=== PATIENT | male | born 1955 | race Caucasian/White ===

== ENCOUNTER 2019-12-23 08:39 | Inpatient (IN) | payer BC, SELFPAY ==
[2019-12-23] VITALS (25 sets, daily range): BP systolic 90–172; BP diastolic 55–110; PULSE 64–117; RESP 16–19; TEMP 36.6–36.9; O2SAT 94–98; BMI 33.3; BMI 34.1
--- NOTE | 2019-12-23 | IR_ITS ---
APPROVED REPORT Patient Location: Emergent Fur Clipper: YOSSI Martel RT (R) PROCEDURES Left heart catheterization Left ventriculogram Selective coronary angiogram Thrombectomy to the proximal dominant right coronary artery followed by drug-eluting stenting to the proximal to mid dominant right coronary Drug-eluting stent deployment to the mid circumflex artery INDICATION Acute inferior lateral posterior ST elevation myocardial infarction, Coronary artery disease, Critical disease in the circumflex artery accompanied by CONSTANCE II flow, Informed consent was obtained prior to the procedure. TECHNIQUE One percent lidocaine used to anesthetize the right anterior aspect of the wrist. The right radial artery was accessed via the Seldinger technique. A 6 Burkinan sheath was placed in the right radial artery. 2.5 mg of verapamil, 800 mcg of nitroglycerin, 1mg Lidocaine were administered intra-arterially. And I Katherien right catheter was used to intubate the right coronary and a Choice PT extra-support wire was used to traverse the occlusion in the dominant right coronary. A penumbra aspiration catheter was used to aspirate a large thrombus and restore CONSTANCE-3 flow. 3.5 x 38 mm resolute anna stent was deployed at 18 aarti reducing the critical stenosis to 0%. CONSTANCE 0 flow was present at the beginning of the procedure with CONSTANCE-3 flow at the end of the procedure. Following this a JL 3.5 catheter was used to intubate the left main artery and perform diagnostic angiography. Once the circumflex artery was identified having a critical blockage accompanied by CONSTANCE II flow a 6 Burkinan JR 3.5 guide catheter was placed in the left main artery and a Choice PT wire was placed distally. A 2.5 x 18 mm resolute anna stent was deployed at 18 aarti reducing the critical stenosis to 0%. Distal to the stent was a persistent identifiable focal lesion therefore a 2.5 x 8 mm resolute anna stent was placed distal to the first stent yet still overlapping the stent and deployed at 18 aarti. Excellent angiographic results were obtained with CONSTANCE II flow being improved to CONSTANCE-3 flow. At the end of the procedure the apparatus was removed the sheath was removed good hemostasis was achieved using TR banding patient was transferred to the postop holding area stable condition therapeutic heparin was administered before the procedure and during the procedure. ANGIOGRAPHIC RESULTS The left main artery Normal The left anterior descending artery Is a very proximal concentric 80% stenosis followed by mild 10 to 20% mid vessel atheromatous plaque. The circumflex artery A moderate sized ramus intermedius originates off the very proximal circumflex artery which has proximal 20% stenosis. The circumflex artery has a mid vessel greater than 90% stenosis accompanied by CONSTANCE II flow supplying 2 distal moderate-sized obtuse marginal arteries The right coronary artery Is a large dominant vessel initially occluded following revascularization the right coronary artery was widely patent throughout the proximal and mid segment. Distally there were 20% stenoses as well as a mid vessel 30% stenosis in the mid posterior descending artery The CELIS ventriculogram reveals Preserved at 55% with inferior wall hypokinesis The left ventricular end-diastolic pressure 20 mmHg IMPRESSION Severe three-vessel coronary disease as described above Acute ST elevation myocardial infarction involving a proximal dominant right coronary with successful thrombectomy followed by drug-eluting stent restoring CONSTANCE-3 flow to the large dominant vessel Critical disease in a circumflex artery accompanied by slow flow with successful drug-eluting stenting restoring CONSTANCE II flow to CONSTANCE-3
--- NOTE | 2019-12-23 08:35 | ECG_ITS ---
APPROVED REPORT Exam: Resting ECG HR:94 bpm ECG Measurements Heart Rate 94 AXES MA 132 P 51 QRSd 102 QRS 16 QT 372 T 88 QTc 465 <Conclusion> Sinus rhythm with occasional premature ventricular complexes Inferior infarct, possibly acute ACUTE AL Consider right ventricular involvement in acute inferior infarct Abnormal ECG Electronically signed by : Tray Matta, 12/26/2019 08:35:32
--- NOTE | 2019-12-23 08:39 | PC.NURSE ---
EKG given to md for review. md attempting to review prior EKGs.
--- NOTE | 2019-12-23 08:47 | XR_ITS ---
PROCEDURE: XR CHEST PORTABLE CLINICAL HISTORY: cough Chest pain, STEMI COMPARISON: XA CL LHC W VENTRICLE from 12/23/2019 FINDINGS: Mild cardiomegaly without failure. Study is obtained in a lordotic position with portable technique. There is increased density in the left lower lung zone some which may be due to to attenuation from overlying soft tissues. Cannot exclude consolidation in the left lower lobe. Consider upright PA and lateral chest for further evaluation. No acute bony abnormalities. IMPRESSION: Cardiomegaly with possible consolidation or mass in the left lower lobe. Follow-up recommended Dictated b John Cavanaugh MD 12/23/2019 09:15 John Cavanaugh MD in [facility] 12/23/2019 09:15
--- NOTE | 2019-12-23 09:00 | ECG_ITS ---
APPROVED REPORT Exam: Resting ECG HR:53 bpm ECG Measurements Heart Rate 53 AXES ID 130 P 48 QRSd 102 QRS 17 QT 410 T 90 QTc 384 <Conclusion> Sinus bradycardia Inferior infarct, possibly acute Anterolateral injury pattern ACUTE DC Consider right ventricular involvement in acute inferior infarct Abnormal ECG Electronically signed by : Tray Matta, 12/26/2019 08:35:26
[2019-12-23 09:01] LABS: Basophils # 0.1 K/mm3 (0-0.2); Basophils % 0.8 % (0.1-2.0); Eosinophils # 0.2 K/mm3 (0.0-0.4); Hematocrit 49.8 % (42.0-52.0); Hemoglobin 17.6 g/dL (14.1-18.0); Lymphocytes # 3.4 K/mm3 (0.7-4.5); Lymphocytes % 31.8 % (10-50); Mean Corpuscular HGB Conc 35.3 g/dL (31.8-35.4); Mean Corpuscular Hemoglobin 30.3 pg (27.0-31.2); Mean Corpuscular Volume 85.9 fl (80-94); Mean Platelet Volume 7.8 fl (7.4-10.4); Monocytes # 0.7 K/mm3 (0.1-1.0); Monocytes % 6.1 % (1.7-9.3); Neutrophils # 6.3 K/mm3 (1.8-7.8); Neutrophils % 59.2 % (37.0-80.0); Platelet Count 365 K/mm3 (142-424); Red Cell Distribution Width 14.1 % (11.5-17.5); White Blood Count 10.7 K/mm3 (4.8-10.8)
--- NOTE | 2019-12-23 09:04 | PC.NURSE ---
STEMI Alert called, notified crew boat operator to page over head contacted director of cardiac cath lab stated dr. temple is not in there yet crew boat operator paging dr. temple.
--- NOTE | 2019-12-23 09:04 | PC.NURSE ---
pt changed into hospital attire. personal belongs placed in bag at pt bedside.
--- NOTE | 2019-12-23 09:06 | PC.NURSE ---
engineering laboratory technician at bedside.
[2019-12-23 09:08] LABS: Chloride 101 mmol/L (98-107); Potassium 3.7 mmoL/L (3.5-5.1); Sodium 141 mmol/L (136-145)
--- NOTE | 2019-12-23 09:09 | HMH.EDCP ---
ED Disposition Clinical Impression: ST elevation myocardial infarction (STEMI), Hypertension Disposition: Admitted As Inpatient Condition on Discharge: Critical Additional Instructions: Patient transferred to labor relations director for acute PCI. Disposition pending PCP after cardiac intervention Referrals: PCP,No [Primary Care Provider] - - Critical Care Critical Care Time: No Attestation: On 12/23/19, the high probability of a clinically significant, sudden or life threatening deterioration of the following system(s) required my full and direct attention, intervention and personal management. The time I documented below is in addition to time spent performing reported procedures but includes the following listed in this critical care notation. Medical Decision Making - Yobani Inquiry Pt receiving controlled substance: Yes Yobani was queried for this patient: No Reason not queried -: Emergent pt cond-no time Risks and benefits of using a controlled substance: were discussed with pt by me Vital Signs: 12/23/19 08:43 12/23/19 09:07 Temperature 98 F Temperature Source Oral Pulse Rate [Left Brachial] 89 Respiratory Rate 16 Blood Pressure [Right Radial Artery] 164/103 H 90/55 L Blood Pressure Mean [Right Radial Artery] 123 66 Blood Pressure Position [Right Radial Artery] Sitting Sitting 02 Sat by Pulse Oximetry 98 Oxygen Delivery Method Room Air - Lab Data Lab Results 12/23/19 08:40: WBC 10.7, RBC 5.80, Hgb 17.6, Hct 49.8, MCV 85.9, MCH 30.3, MCHC 35.3, RDW 14.1, Plt Count 365, MPV 7.8, Neut % (Auto) 59.2, Lymph % (Auto) 31.8, [place] % (Auto) 6.1, Eos % (Auto) 2.0, Baso % (Auto) 0.8, Neut # (Auto) 6.3, Lymph # (Auto) 3.4, [place] # (Auto) 0.7, Eos # (Auto) 0.2, Baso # (Auto) 0.1 Result diagrams: 12/23/19 08:40 Orders (Tests/Meds): ED MEDICATIONS Generic Name Dose Route Start Last Admin Trade Name Freq PRN Reason Stop Dose Admin Sodium Chloride 1,000 mls @ 999 mls/hr 12/23/19 09:15 12/23/19 09:09 Sod Chlor 0.9% 1000ml Bag IV 12/23/19 10:15 999 mls/hr .Q1H1M ANIRUDH Administration Discontinued Medications Generic Name Dose Route Start Last Admin Trade Name Mumtaz PRN Reason Stop Dose Admin Aspirin 162 mg 12/23/19 08:58 12/23/19 09:09 Aspirin 81mg Chewable Tablet PO 12/23/19 08:59 162 mg ONCE ONE Administration Heparin Sodium (Porcine) 10,300 unit 12/23/19 09:07 Heparin Sodium 5,000 Units/Ml Vial 100 unit/kg (69096 unit) 12/23/19 09:08 IV ONCE ONE Morphine Sulfate 4 mg 12/23/19 08:49 12/23/19 08:58 Morphine 2mg/Ml Syringe IV 12/23/19 08:50 4 mg ONCE ONE Administration Ondansetron HCl 4 mg 12/23/19 08:57 12/23/19 08:57 Zofran 4mg/2ml Vial IV 12/23/19 08:58 4 mg ONCE ONE Administration Ticagrelor 180 mg 12/23/19 09:07 12/23/19 09:09 Brilinta 90mg Tablet PO 12/23/19 09:08 180 mg ONCE ONE Administration ORDERS Category Date Time Status XR chest portable Stat Exams 12/23/19 08:47 Ordered Brain Natriuretic Peptide Stat Lab 12/23/19 08:40 Received Comprehensive Metabolic Panel Stat Lab 12/23/19 08:40 Received Lipase Stat Lab 12/23/19 08:40 Received Magnesium Stat Lab 12/23/19 08:45 Received PTT [Activated Partial Thrombo Time] Stat Lab 12/23/19 08:40 Received Prothrombin Time INR Stat Lab 12/23/19 08:40 Received Troponin I Q3H Lab 12/23/19 08:45 Received Troponin I Q3H Lab 12/23/19 12:00 Ordered Troponin I Q3H Lab 12/23/19 15:00 Ordered Troponin I Q3H Lab 12/23/19 18:00 Ordered Troponin I Q3H Lab 12/23/19 21:00 Ordered Troponin I Timed Lab 12/23/19 08:40 Received ECG Request by /Janet Stat Y 12/23/19 08:48 Ordered - ECG Data Tracing #1 EKG showed T wave depression in aVL as well as questionable elevation in 2 3 aVF ECG initial impression date: 12/23/19 ECG initial impression time: 08:40 Tracing #2 EKG showed significant elevation in V1 V2 V3 concerning for right-sided acute infa
[2019-12-23 09:11] LABS: Alanine Aminotransferase 36 U/L (12-78); Albumin Level 4.1 g/dl (3.5-5.0); Albumin/Globulin Ratio 1.3 (1.1-1.8); Alkaline Phosphatase 85 U/L (38-126); Anion Gap 13.7 mEq/L (5-15); Aspartate Amino Transferase 45 U/L (17-59); Bilirubin,Total 0.8 mg/dl (0.2-1.3); Blood Urea Nitrogen 12 mg/dl (9-20); Calcium 9.4 mg/dl (8.4-10.2); Carbon Dioxide 30 mmol/L (22.0-30.0); Creatinine Clearance Estimated 101 mL/min (50-200); Estimated Glomerular Filt Rate 68 ml/min (>60); GFR (African American) 82 ML/MIN (>60); Globulin 3.2 g/dL (1.3-3.2); Glucose 137 mg/dl (74-100); Lipase 75 U/L (23-300); Total Protein,Serum 7.3 g/dl (6.3-8.2)
--- NOTE | 2019-12-23 09:16 | PC.NURSE ---
contacting dr. trejo
--- NOTE | 2019-12-23 09:17 | PC.NURSE ---
office staff states dr. trejo is not in the office yet pretzel twisting machine operator paging dr. trejo.
[2019-12-23 09:21] LABS: Activated Partial Thrombo Time 23.7 seconds (23.6-34.0); INR 1.14 (0.9-1.1); Prothrombin Time 11.6 seconds (9.4-11.8)
--- NOTE | 2019-12-23 09:21 | HMH.CNCARD ---
History of Present Illness Consult date: 12/23/19 Requesting physician: Wil Camarillo Consult reason: chest pain Chief complaint: chest pain Additional Medical History:: 1. borderline HTN History of present illness: This is a 64 year old male who presented to the ED with complaints of CP. He states his CP started several years ago and worsened the last two days. he describes this as a pressure in the substrenal aspect of the chest and radiating to the B arms/shoulders and jaw. It is associated with SOB, nausea, diaphoresis, clamminess, and dizziness/light headedness. He states that this is a 5/10 but is making him feel very anxious. He states the CP occurred every 3 hours since yesterday. woke him up this morning with diaphoresis which was new for him and prompted him to come into the ED. He was found to have an inferior STEMI. Denies tobacco use. denies CAD, HLD, or DM. He reports boderline HTN. Denies family history of UT or CAD. Denies fever, chills, vomiting, diarrhea, PND or orthopnea. He is still having pain now and feels as if he will pass out. Patient will be taken directly to solder making laborer. [facility] History I have reviewed the patient's past medical history: Yes Medical History: Reports:: Hypertension *Have you ever received a pneumonia vaccine?: No *Have you received a flu vaccine this season?: No - *Social History Smoking Status: Never smoker Alcohol Intake: never *Occupational Status:: employed, other Housing: other Household Members: other *Travel in the last 8 weeks: None Family Hx:: Diabetes Meds Allergies Allergy/AdvReac Type Severity Reaction Status Date / Time No Known Allergies Allergy Unverified 05/07/17 15:16 Review of Systems - Review of Systems Review of systems:: pertinent systems reviewed and negative unless documented below - *Cardiovascular Reports chest pain, Reports chest pain at rest, Reports chest pain with activity, Reports excessive sweating, Reports shortness of breath, Reports shortness of breath with activity, Reports radiating jaw, neck or arm pain - *Gastrointestinal Reports nausea - *Neurologic Reports dizziness, Denies weakness Exam Vital signs and Labs for Last 24 Hours: Temp Pulse Resp BP Pulse Ox 98 F 89 16 90/55 L 98 12/23/19 08:43 12/23/19 08:43 12/23/19 08:43 12/23/19 09:07 12/23/19 08:43 Laboratory Results - last 24 hr 12/23/19 08:40: WBC 10.7, RBC 5.80, Hgb 17.6, Hct 49.8, MCV 85.9, MCH 30.3, MCHC 35.3, RDW 14.1, Plt Count 365, MPV 7.8, Neut % (Auto) 59.2, Lymph % (Auto) 31.8, [place] % (Auto) 6.1, Eos % (Auto) 2.0, Baso % (Auto) 0.8, Neut # (Auto) 6.3, Lymph # (Auto) 3.4, [place] # (Auto) 0.7, Eos # (Auto) 0.2, Baso # (Auto) 0.1 12/23/19 08:40: Sodium 141, Potassium 3.7, Chloride 101, Carbon Dioxide 30, Anion Gap 13.7, BUN 12, Creatinine 1.10, Estimated Creat Clear 101, Estimated GFR 68, Est GFR ( Amer) 82, Glucose 137 H, Calcium 9.4, Total Bilirubin 0.8, AST 45, ALT 36, Alkaline Phosphatase 85, Total Protein 7.3, Albumin 4.1, Globulin 3.2, Albumin/Globulin Ratio 1.3, Lipase 75 12/23/19 08:40: PT 11.6, INR 1.14 H, APTT 23.7 I & O for Last 24 hours: Intake & Output 12/20/19 12/21/19 12/22/19 12/23/19 23:59 23:59 23:59 23:59 Weight 226 lb Narrative: EKG shows inferior ST elevation - Constitutional no acute distress, obese - *Routine HEENT Exam Head: Present: normocephalic, atraumatic Eye: Present: EOMI, PERRL ENT: Present: mucous membranes moist - *Routine Neck Exam Present: supple, full ROM, normal carotid upstroke. Absent: JVD, carotid bruit, lymphadenopathy - *Routine Respiratory Exam Present: CTA bilaterally - *Routine Cardiovascular Exam Present: RRR, Normal S1, Normal S2. Absent: murmur - *Routine Abdominal Exam Present: soft, normoactive bowel sounds. Absent: tenderness, distended - *Routine Extremities Exam Present: full ROM, pulses intact, normal capillary refill. Absent: cyanosis, clubbing, edema - *Routine
[2019-12-23 09:23] LABS: NT Pro Brain Natriuretic Pep. 520 pg/mL (0-125)
[2019-12-23 09:32] LABS: Magnesium 2.2 mg/dl (1.6-2.3)
--- NOTE | 2019-12-23 09:34 | PC.NURSE ---
RIN AVILA spoke with Dr. Beltrán at this time
--- NOTE | 2019-12-23 09:43 | CA_ITS ---
APPROVED REPORT EXAM: Comprehensive 2D, Doppler, and color-flow Echocardiogram Farm Products Shipper: Ameena Prasad RDCS Ht: 5 ft 9 in Wt: 226lbs BSA: 2.18 BP: 90/55 mmHg Indications: CAD,CP STEMI,POST CATH 2D Dimensions LVOT 1.89 cm (M/F) 1.5-2.5 M-Mode Dimensions RVDd 3.06 cm (0.9-2.6) LVDd 6.00 cm (3.5-5.7) LVDs 4.72 cm (3.5-5.7) IVSd 0.85 cm (0.6-1.1) PWd 0.98 cm (0.6-1.1) EF (Teich) 42.60% FS 21.30% EDV (Teich) 180.00 mL ESV (Teich) 103.40 mL LV Diastology E/A Ratio 0.58 Mitral Valve MV A Velocity 76.00 (40-130 cm/s) Left Ventricle Left atrium is mildly enlarged, left ventricle is normal size, mild concentric left ventricular hypertrophy, visually estimated ejection fraction 45%, there is moderate hypokinesis involving the inferior, inferior basal and basal septal wall. Grade 1 diastolic dysfunction seen without tissue Doppler evidence of raise left atrial pressure. Right Ventricle Right atrium and right ventricular normal size and contractility. Aortic Valve Aortic valve is thickened and calcified leaflet chordae display good mobility, there is no aortic stenosis or aortic insufficiency. Mitral Valve Mitral valve is grossly normal, there is mild mitral regurgitation. Tricuspid Valve Tricuspid valve is grossly normal, there is mild tricuspid regurgitation, tricuspid regurgitation jet velocity is inadequate for calculation of the right ventricular systolic pressure. Pulmonic Valve Pulmonic valve is poorly visualized. Great Vessels Aortic root is normal size. Pericardium No significant pericardial effusion noted. Conclusion 1. Mildly enlarged left atrium, normal left ventricular size, mild concentric left ventricular hypertrophy, visually estimated ejection fraction 45% with segmental wall motion abnormality described above, grade 1 diastolic dysfunction seen without tissue Doppler evidence of raise left atrial pressure. 2. Mild mitral and tricuspid regurgitation. 3. No significant pericardial effusion noted. Electronically signed by : Kiirt Blackwood, 12/23/2019 16:44:15
[2019-12-23 09:45] LABS: Troponin I 0.55 ng/ml (0.00-0.034)
--- NOTE | 2019-12-23 10:47 | ECG_ITS ---
APPROVED REPORT Exam: Resting ECG HR:81 bpm ECG Measurements Heart Rate 81 AXES [place] 138 P 46 QRSd 100 QRS -15 QT 404 T -14 QTc 469 <Conclusion> Sinus rhythm with marked sinus arrhythmia Inferior infarct - old T wave abnormality, consider lateral ischemia Abnormal ECG Electronically signed by : Tray Matta, 12/26/2019 08:33:34
--- NOTE | 2019-12-23 12:33 | HMH.HP ---
*Admission Date: 12/23/19 <Leslie Quezada - 12/23/19 12:47> *Chief complaint: chest pain <Leslie Quezada - 12/23/19 12:47> *History of present illness: HPI narrative from the ER: 64-year-old male presented to the emergency department with chest pain. Patient states that he has had chronic chest pain for some years, however it worsened approximately 2 days ago while he was at work. States that it is a dull nagging pain that was radiating across his chest. It was going into both of his arms bilaterally and into his jaw. He awakened this morning and was having some cold sweats which concerned him. Patient denies any cardiac history. He is a non-smoker. Does have a family history of coronary artery disease. He states that the pain has been persistent for the last 2 days. Not positional. He denies any headache or change in vision. No focal weakness. No abdominal pain or vomiting. No cough or difficulty breathing. Patient's EKG was concerning for acute STEMI. Cardiology was notified. Parimutuel Clerk was activated. Patient was given aspirin, Brilinta as well as heparin. He was then taken to the supervisor labor gang Pt did have a LHC with the following results and recommendations: IMPRESSION Severe three-vessel coronary disease as described above Acute ST elevation myocardial infarction involving a proximal dominant right coronary with successful thrombectomy followed by drug-eluting stent restoring CONSTANCE-3 flow to the large dominant vessel Critical disease in a circumflex artery accompanied by slow flow with successful drug-eluting stenting restoring CONSTANCE II flow to CONSTANCE-3 flow Persistent severe stenosis in the proximal LAD Preserved ejection fraction with regional wall motion abnormality Elevated LVEDP PLAN 1. Brilinta 90 twice daily plus aspirin 81 mg daily 2. LDL less than 55 to be achieved with high intensity statin 3. Echocardiogram 4. Referral to cardiac rehabilitation 5. Avoidance of all tobacco products 6. Patient will be brought back to the Parimutuel Clerk in 2 to 4 weeks and will undergo stenting of the proximal LAD 7. Patient requires continuous telemetry monitoring with inpatient care over the next 48 hours 8. LEI inhibitors and beta-blockers once hemodynamically stable Electronically signed by : Chris Gray, 12/23/2019 10:52:34 At the time of assessment pt is lying comfortably in bed with family at bedside <Leslie Quezada - 12/23/19 14:28> [facility] History Medical History: Reports:: Atherosclerotic Heart Disease, Congestive Heart Failure, Hypertension Denies:: Cancer, Diabetes Mellitus Type 1, Diabetes Mellitus Type 2, MRSA <QuezadaLeslie 12/23/19 12:47> *Have you ever received a pneumonia vaccine?: No <PilarLeslie 12/23/19 12:47> *Have you received a flu vaccine this season?: No <PilarLeslie 12/23/19 12:47> Other Surgeries: Yes: Coronary Stent <Quezada,Leslie 12/23/19 12:47> Amputation: No <Quezada,Leslie 12/23/19 12:47> Comment: cyst removed from the right side of neck <Leslie Quezada 12/23/19 12:47> - *Social History Smoking Status: Never smoker <Quezada,Leslie 12/23/19 12:47> Alcohol Intake: never <PilarLeslie 12/23/19 12:47> *Occupational Status:: employed <PilarLeslie 12/23/19 12:47> Housing: house <QuezadaLeslie 12/23/19 12:47> Household Members: other <Quezada,Leslie - 12/23/19 12:47> *Travel in the last 8 weeks: Inside the [place] <Leslie Quezada 12/23/19 12:47> Family Hx:: Cancer, Diabetes <PilarLeslie 12/23/19 12:47> Review of Systems - Constitutional Denies fatigue, Denies fever(s) <Leslie Quezada 12/23/19 14:28> - Eyes Denies change in vision <Leslie Quezada 12/23/19 14:28> - ENT Denies ear pain, Denies sore throat <Leslie Quezada 12/23/19 14:28> - *Cardiovascular Reports chest pain, Reports excessive sweating, Denies shortness of breath, Denies irregular heart rhythm <Leslie Quezada 12/23/19 14:28> - *Respiratory Denies chest congest
--- NOTE | 2019-12-23 12:39 | PC.NURSE ---
ON ARRIVAL TO [facility] C/O CP, Dalton ALVARES WAS ON FLOOR AND STATED THAT IS NORMAL BUT TO OBTAIN AN EKG ANYWAYS. WHEN ENTERING THE ROOM TO OBTAIN EKG PT STATED PT WAS ALREADY GONE AND SOMETIMES CAN SCARE HIMSELF EASILY. PT DOES REPORTS HE HAS HAD SOME SORT OF PAIN FROM RIBS TO CHEST AREA FOR YEARS WITH CERTAIN MOVEMENTS. Dalton ALVARES READ EKG NORMAL. NO NEW ORDERS AND PT IS IN NO PAIN AT THIS TIME.
--- NOTE | 2019-12-23 14:00 | P.CONPHA_ITS ---
[facility] Pharmacy VTE Monitoring - Patient Demographics Admission date: 12/23/19 Report Date: 12/23/19 Time: 14:00 Allergies/Adverse Reactions: Patient Allergies No Known Allergies Allergy (Unverified 05/07/17 15:16) Height: 1.75 m Weight: 102.512 kg Patient Problems: Current Active Problems ST elevation myocardial infarction (STEMI) (Acute) Hypertension (Acute) - VTE Risk Labs: VTE Related Lab Results Hgb 17.6 g/dL (14.1-18.0) 12/23/19 08:40 Hct 49.8 % (42.0-52.0) 12/23/19 08:40 Plt Count 365 K/mm3 (142-424) 12/23/19 08:40 PT 11.6 seconds (9.4-11.8) 12/23/19 08:40 INR 1.14 (0.9-1.1) H 12/23/19 08:40 APTT 23.7 seconds (23.6-34.0) 12/23/19 08:40 BUN 12 mg/dl (9-20) 12/23/19 08:40 Creatinine 1.10 mg/dl (0.66-1.25) 12/23/19 08:40 Estimated Creat Clear 101 mL/min (50-200) 12/23/19 08:40 Was VTE Risk Assessment Performed: Yes VTE Score: 6 VTE Risk Level: Moderate Risk Clinical Trial Participant: No - Prophylaxis VTE Prophylaxis Ordered?: Yes Types of VTE Prophylaxis: TEDS Knee High, Pharmacological Pharmacologic Type: Other (BRILINTA)
[2019-12-23 16:27] LABS: CATHL Activated Clotting Time > 400 SEC (74-125)
[2019-12-23 16:29] LABS: CATHL Activated Clotting Time 339 SEC (74-125)
--- NOTE | 2019-12-23 16:42 | PC.NURSE ---
pt able to be moved out of step down per parish tatum and md trejo.
[2019-12-23 18:20] LABS: Adenovirus,PCR Not Detected (NotDetected); Bordetella Pertussis Not Detected (NotDetected); Chlamydophila Pneumoniae, PCR Not Detected (NotDetected); Coronavirus 19, PCR Not Detected (NotDetected); Coronavirus 229E Not Detected (NotDetected); Coronavirus NL63 Not Detected (NotDetected); Coronavirus OC43 Not Detected (NotDetected); Coronovirus HKU1,PCR Not Detected (NotDetected); Human Metapneumovirus Not Detected (NotDetected); Influenza A, PCR Not Detected (NotDetected); Influenza AH1, 2009 Not Detected (NotDetected); Influenza AH1, PCR Not Detected (NotDetected); Influenza AH3,PCR Not Detected (NotDetected); Influenza B, PCR Not Detected (NotDetected); Mycoplasma Pneumoniae, PCR Not Detected (NotDetected); Parainfluenza 1, PCR Not Detected (NotDetected); Parainfluenza 2, PCR Not Detected (NotDetected); Parainfluenza 3, PCR Not Detected (NotDetected); Parainfluenza 4, PCR Not Detected (NotDetected); Respiratory Syncytial Virus Not Detected (NotDetected); Rhinovirus/Enterovirus Not Detected (NotDetected)
--- NOTE | 2019-12-23 19:36 | PC.NURSE ---
pt has done well since post heart cath. right radial site is cdi. vss.
[2019-12-24] VITALS (10 sets, daily range): BP systolic 124–139; BP diastolic 70–90; PULSE 70–90; RESP 16–20; TEMP 36.1–36.9; O2SAT 97–100; BMI 33.4
[2019-12-24 06:31] LABS: Basophils # 0.1 K/mm3 (0-0.2); Basophils % 0.5 % (0.1-2.0); Eosinophils # 0.2 K/mm3 (0.0-0.4); Eosinophils % 1.5 % (0.1-12.0); Hematocrit 46.4 % (42.0-52.0); Hemoglobin 15.9 g/dL (14.1-18.0); Lymphocytes # 1.6 K/mm3 (0.7-4.5); Lymphocytes % 16.7 % (10-50); Mean Corpuscular HGB Conc 34.3 g/dL (31.8-35.4); Mean Corpuscular Hemoglobin 29.9 pg (27.0-31.2); Mean Corpuscular Volume 87.4 fl (80-94); Mean Platelet Volume 7.9 fl (7.4-10.4); Monocytes # 0.5 K/mm3 (0.1-1.0); Neutrophils # 7.4 K/mm3 (1.8-7.8); Neutrophils % 76.3 % (37.0-80.0); Platelet Count 237 K/mm3 (142-424); Red Cell Distribution Width 14.6 % (11.5-17.5); White Blood Count 9.7 K/mm3 (4.8-10.8)
[2019-12-24 06:44] LABS: Alanine Aminotransferase 45 U/L (12-78); Albumin Level 3.8 g/dl (3.5-5.0); Alkaline Phosphatase 69 U/L (38-126); Anion Gap 9.1 mEq/L (5-15); Aspartate Amino Transferase 117 U/L (17-59); Bilirubin,Unconjugated 1.1 mg/dL (0.0-1.1); Blood Urea Nitrogen 15 mg/dl (9-20); Calcium 8.8 mg/dl (8.4-10.2); Carbon Dioxide 30 mmol/L (22.0-30.0); Chloride 103 mmol/L (98-107); Chol/HDL Ratio 4.2 (1-3.5); Cholesterol 164 mg/dl (140-200); Creatinine Clearance Estimated 111 mL/min (50-200); Estimated Glomerular Filt Rate 76 ml/min (>60); GFR (African American) 92 ML/MIN (>60); Glucose 103 mg/dl (74-100); HDL Cholesterol 39 mg/dl (40-60); Potassium 4.1 mmoL/L (3.5-5.1); Sodium 138 mmol/L (136-145); Total Protein,Serum 6.8 g/dl (6.3-8.2); Triglycerides 101 mg/dl (30-150); VLDL Cholesterol 20 mg/dL (0-40)
--- NOTE | 2019-12-24 08:26 | HMH.ACPN2 ---
<Chely Doll - Last Filed: 12/24/19 08:26> Internal Medicine - PN: Subj *Date: 12/24/19 *Time: 08:26 Interval history: Patient states he is feeling well this morning. He denies any chest pain or shortness of breath. He did not rest very well due to being in the hospital. He did eat some breakfast this morning. Exam Vital signs and Labs for Last 24 Hours: Temp Pulse Resp BP Pulse Ox 98.2 F 81 20 124/70 98 12/24/19 04:00 12/24/19 04:00 12/24/19 04:00 12/24/19 04:00 12/24/19 04:00 Laboratory Results - last 24 hr 12/23/19 08:40: WBC 10.7, RBC 5.80, Hgb 17.6, Hct 49.8, MCV 85.9, MCH 30.3, MCHC 35.3, RDW 14.1, Plt Count 365, MPV 7.8, Neut % (Auto) 59.2, Lymph % (Auto) 31.8, Atkinson % (Auto) 6.1, Eos % (Auto) 2.0, Baso % (Auto) 0.8, Neut # (Auto) 6.3, Lymph # (Auto) 3.4, Atkinson # (Auto) 0.7, Eos # (Auto) 0.2, Baso # (Auto) 0.1 12/23/19 08:40: Sodium 141, Potassium 3.7, Chloride 101, Carbon Dioxide 30, Anion Gap 13.7, BUN 12, Creatinine 1.10, Estimated Creat Clear 101, Estimated GFR 68, Est GFR ( Amer) 82, Glucose 137 H, Calcium 9.4, Total Bilirubin 0.8, AST 45, ALT 36, Alkaline Phosphatase 85, Total Protein 7.3, Albumin 4.1, Globulin 3.2, Albumin/Globulin Ratio 1.3, Lipase 75 12/23/19 08:40: PT 11.6, INR 1.14 H, APTT 23.7 12/23/19 08:40: NT-Pro-B Natriuret Pep 520 H 12/23/19 08:45: Magnesium 2.2, Troponin I 0.55 H 12/23/19 09:26: Activated Clotting Time 339 H* 12/23/19 09:51: Activated Clotting Time > 400 H* 12/23/19 18:10: Chlamy pneumoniae PCR Not detected, Adenovirus (PCR) Not detected, B. pertussis DNA (PCR) Not detected, Coronavirus OC43 (PCR) Not detected, Coronavirus HKU1 (PCR) Not detected, Coronavirus 229E (PCR) Not detected, COVID-19 PCR Not detected, Coronavirus NL63 (PCR) Not detected, Human Metapneumovir PCR Not detected, Influenza A (H1) PCR Not detected, Influ A (H1N1/09) PCR Not detected, Influenza A (H3) PCR Not detected, Influenza Type A (PCR) Not detected, Influenza Type B (PCR) Not detected, M. pneumoniae (PCR) Not detected, Parainfluenza 1 (PCR) Not detected, Parainfluenza 2 (PCR) Not detected, Parainfluenza 3 (PCR) Not detected, Parainfluenza 4 (PCR) Not detected, RSV (PCR) Not detected, Entero/Rhino (PCR) Not detected 12/24/19 05:42: WBC 9.7, RBC 5.30, Hgb 15.9, Hct 46.4, MCV 87.4, MCH 29.9, MCHC 34.3, RDW 14.6, Plt Count 237 D, MPV 7.9, Neut % (Auto) 76.3, Lymph % (Auto) 16.7, Atkinson % (Auto) 5.0, Eos % (Auto) 1.5, Baso % (Auto) 0.5, Neut # (Auto) 7.4, Lymph # (Auto) 1.6, Atkinson # (Auto) 0.5, Eos # (Auto) 0.2, Baso # (Auto) 0.1 12/24/19 05:42: Sodium 138, Potassium 4.1, Chloride 103, Carbon Dioxide 30, Anion Gap 9.1, BUN 15, Creatinine 1.00, Estimated Creat Clear 111, Estimated GFR 76, Est GFR ( Amer) 92, Glucose 103 H D, Calcium 8.8, Total Bilirubin 1.0, Direct Bilirubin 0.0, Conjugated Bilirubin 0.0, Indirect Bilirubin 1.0 H, Unconjugated Bilirubin 1.1, AST 117 H D, ALT 45, Alkaline Phosphatase 69, Total Protein 6.8, Albumin 3.8, Triglycerides 101, Cholesterol 164, LDL Cholesterol Direct 109.60, VLDL Cholesterol 20, HDL Cholesterol 39 L, Cholesterol/HDL Ratio 4.2 H I & O for Last 24 hours: Intake & Output 12/21/19 12/22/19 12/23/19 12/24/19 11:59 11:59 11:59 11:59 Intake Total 480 / 480 Output Total 1175 / 1175 Balance -695 / -695 Weight 230 lb 6 oz 225 lb 12.8 oz - Constitutional no acute distress - *Routine Respiratory Exam Present: CTA bilaterally - *Routine Cardiovascular Exam Present: RRR - *Routine Abdominal Exam Present: soft, normoactive bowel sounds. Absent: tenderness - *Routine Extremities Exam Absent: cyanosis, clubbing, edema - *Routine Skin Exam Present: warm. Absent: rash - *Routine Neurological Exam Present: alert, oriented X3 Assessment and Plan (1) Hypertension Current visit: Yes Status: Acute Category: Medical Code(s): I10 - Essential (primary) hypertension (2) ST elevation myocardial infarction (STEMI) Current visit: Yes
--- NOTE | 2019-12-24 09:41 | HMH.PNCARD ---
Subjective Date: 12/24/19 Time: 09:41 Principal diagnosis: STEMI Interval history: This is a 64-year-old gentleman who was admitted to the hospital for an varus elevation myocardial infarction. He went to the cardiac catheterization lab and underwent thrombectomy and stenting to the proximal right coronary artery. The patient also had critical disease to circumflex artery and underwent stenting as well. He had persistent severe proximal LAD disease and he will be brought back to the cardiac catheterization laboratory in 2 to 4 weeks to undergo revascularization. He tolerated the procedure well and will be on Brilinta and aspirin for dual antiplatelet therapy. this morning he denies any chest pain or pressure. He denies any shortness of breath or edema. He denies any fever, chills, nausea, vomiting, diarrhea, PND or orthopnea. Exam Vital signs and Labs for Last 24 Hours: Temp Pulse Resp BP Pulse Ox 98.4 F 87 18 126/76 97 12/24/19 08:00 12/24/19 08:00 12/24/19 08:00 12/24/19 08:00 12/24/19 08:00 Laboratory Results - last 24 hr 12/23/19 08:45: Magnesium 2.2, Troponin I 0.55 H 12/23/19 09:26: Activated Clotting Time 339 H* 12/23/19 09:51: Activated Clotting Time > 400 H* 12/23/19 18:10: Chlamy pneumoniae PCR Not detected, Adenovirus (PCR) Not detected, B. pertussis DNA (PCR) Not detected, Coronavirus OC43 (PCR) Not detected, Coronavirus HKU1 (PCR) Not detected, Coronavirus 229E (PCR) Not detected, COVID-19 PCR Not detected, Coronavirus NL63 (PCR) Not detected, Human Metapneumovir PCR Not detected, Influenza A (H1) PCR Not detected, Influ A (H1N1/09) PCR Not detected, Influenza A (H3) PCR Not detected, Influenza Type A (PCR) Not detected, Influenza Type B (PCR) Not detected, M. pneumoniae (PCR) Not detected, Parainfluenza 1 (PCR) Not detected, Parainfluenza 2 (PCR) Not detected, Parainfluenza 3 (PCR) Not detected, Parainfluenza 4 (PCR) Not detected, RSV (PCR) Not detected, Entero/Rhino (PCR) Not detected 12/24/19 05:42: WBC 9.7, RBC 5.30, Hgb 15.9, Hct 46.4, MCV 87.4, MCH 29.9, MCHC 34.3, RDW 14.6, Plt Count 237 D, MPV 7.9, Neut % (Auto) 76.3, Lymph % (Auto) 16.7, Oliver % (Auto) 5.0, Eos % (Auto) 1.5, Baso % (Auto) 0.5, Neut # (Auto) 7.4, Lymph # (Auto) 1.6, Oliver # (Auto) 0.5, Eos # (Auto) 0.2, Baso # (Auto) 0.1 12/24/19 05:42: Sodium 138, Potassium 4.1, Chloride 103, Carbon Dioxide 30, Anion Gap 9.1, BUN 15, Creatinine 1.00, Estimated Creat Clear 111, Estimated GFR 76, Est GFR ( Amer) 92, Glucose 103 H D, Calcium 8.8, Total Bilirubin 1.0, Direct Bilirubin 0.0, Conjugated Bilirubin 0.0, Indirect Bilirubin 1.0 H, Unconjugated Bilirubin 1.1, AST 117 H D, ALT 45, Alkaline Phosphatase 69, Total Protein 6.8, Albumin 3.8, Triglycerides 101, Cholesterol 164, LDL Cholesterol Direct 109.60, VLDL Cholesterol 20, HDL Cholesterol 39 L, Cholesterol/HDL Ratio 4.2 H I & O for Last 24 hours: Intake & Output 12/21/19 12/22/19 12/23/19 12/24/19 23:59 23:59 23:59 23:59 Intake Total 480 / 480 360 / 360 Output Total 1175 / 1175 Balance -695 / -695 360 / 360 Weight 230 lb 6 oz 225 lb 12.8 oz Narrative: 12/23/[address] [facility] shows: Severe three-vessel coronary disease as described above Acute ST elevation myocardial infarction involving a proximal dominant right coronary with successful thrombectomy followed by drug-eluting stent restoring CONSTANCE-3 flow to the large dominant vessel Critical disease in a circumflex artery accompanied by slow flow with successful drug-eluting stenting restoring CONSTANCE II flow to CONSTANCE-3 flow Persistent severe stenosis in the proximal LAD Preserved ejection fraction with regional wall motion abnormality Elevated LVEDP PLAN 1. Brilinta 90 twice daily plus aspirin 81 mg daily 2. LDL less than 55 to be achieved with high intensity statin 3. Echocardiogram 4. Referral to cardiac rehabilitation 5. Avoidance of all tobacco products 6. Patient will be brought back to the [facility] in 2 to 4 weeks and will un
--- NOTE | 2019-12-24 15:41 | PC.NURSE ---
NO ACUTE CHANGES T/O SHIFT. NO C/O SOA, PAIN, N/V/D. CATH SITE RIGHT RADIAL SITE, NO PAIN NOTED, DRESSING C/D/I, PT BEGAN COREG AND BRILINTA PT TOLERATED WELL NO C/O SYNCOPE. NSR ON TELEMETRY. PT AMBULATES INDEPENDENTLY TO RR. PT TOLERATING LOW FAT DIET.
[2019-12-25] VITALS: PULSE 70
[2019-12-25 04:00] VITALS: BP 117/67; PULSE 75; PULSE 80; RESP 16; TEMP 36.6; O2SAT 97
[2019-12-25 05:00] VITALS: BMI 33.5
--- NOTE | 2019-12-25 05:37 | PC.NURSE ---
Pt rested well throughout shift. No c/o pain, SOA, dizziness, N/V/D. Tele shows NSR. Pt is independent w/ ADL's and reports no difficulties voiding. Right radial cath site is C/D/I w/o s/s of bleeding or hematoma. Family has been present at bedside.
[2019-12-25 06:09] LABS: Basophils # 0.1 K/mm3 (0-0.2); Basophils % 0.7 % (0.1-2.0); Chloride 103 mmol/L (98-107); Eosinophils # 0.2 K/mm3 (0.0-0.4); Eosinophils % 2.4 % (0.1-12.0); Hematocrit 45.4 % (42.0-52.0); Hemoglobin 15.8 g/dL (14.1-18.0); Lymphocytes # 1.7 K/mm3 (0.7-4.5); Lymphocytes % 16.7 % (10-50); Mean Corpuscular HGB Conc 34.8 g/dL (31.8-35.4); Mean Corpuscular Hemoglobin 30.4 pg (27.0-31.2); Mean Corpuscular Volume 87.4 fl (80-94); Monocytes # 0.6 K/mm3 (0.1-1.0); Monocytes % 5.4 % (1.7-9.3); Neutrophils # 7.6 K/mm3 (1.8-7.8); Neutrophils % 74.8 % (37.0-80.0); Platelet Count 252 K/mm3 (142-424); Potassium 4.3 mmoL/L (3.5-5.1); Red Cell Distribution Width 14.1 % (11.5-17.5); Sodium 134 mmol/L (136-145); White Blood Count 10.2 K/mm3 (4.8-10.8)
[2019-12-25 06:12] LABS: Anion Gap 7.3 mEq/L (5-15); Blood Urea Nitrogen 18 mg/dl (9-20); Carbon Dioxide 28 mmol/L (22.0-30.0); Creatinine Clearance Estimated 111 mL/min (50-200); Estimated Glomerular Filt Rate 76 ml/min (>60); GFR (African American) 92 ML/MIN (>60)
[2019-12-25 06:13] LABS: Glucose 101 mg/dl (74-100)
[2019-12-25 07:48] VITALS: BP 127/81; PULSE 87; RESP 17; TEMP 36.5; O2SAT 98
[2019-12-25 08:00] VITALS: O2SAT 98
--- NOTE | 2019-12-25 08:18 | HMH.ACPN2 ---
<Chely Doll - Last Filed: 12/25/19 08:18> Internal Medicine - PN: Subj *Date: 12/25/19 *Time: 08:18 Interval history: Patient states he is feeling well today. He has had no further chest pain or shortness of breath. He slept well finally last night. He is eating well. He is anxious to go home. Exam Vital signs and Labs for Last 24 Hours: Temp Pulse Resp BP Pulse Ox 97.7 F 87 17 127/81 98 12/25/19 07:48 12/25/19 07:48 12/25/19 07:48 12/25/19 07:48 12/25/19 07:48 Laboratory Results - last 24 hr 12/25/19 05:45: WBC 10.2, RBC 5.20, Hgb 15.8, Hct 45.4, MCV 87.4, MCH 30.4, MCHC 34.8, RDW 14.1, Plt Count 252, MPV 8.0, Neut % (Auto) 74.8, Lymph % (Auto) 16.7, Turner % (Auto) 5.4, Eos % (Auto) 2.4, Baso % (Auto) 0.7, Neut # (Auto) 7.6, Lymph # (Auto) 1.7, Turner # (Auto) 0.6, Eos # (Auto) 0.2, Baso # (Auto) 0.1 12/25/19 05:45: Sodium 134 L, Potassium 4.3, Chloride 103, Carbon Dioxide 28, Anion Gap 7.3, BUN 18, Creatinine 1.00, Estimated Creat Clear 111, Estimated GFR 76, Est GFR ( Amer) 92, Glucose 101 H, Calcium 9.0 I & O for Last 24 hours: Intake & Output 12/22/19 12/23/19 12/24/19 12/25/19 11:59 11:59 11:59 11:59 Intake Total 840 / 840 480 / 480 Output Total 1175 / 1175 Balance -335 / -335 480 / 480 Weight 230 lb 6 oz 225 lb 12.8 oz 226 lb 7 oz - Constitutional no acute distress - *Routine Respiratory Exam Present: CTA bilaterally - *Routine Cardiovascular Exam Present: RRR - *Routine Abdominal Exam Present: soft, normoactive bowel sounds. Absent: tenderness - *Routine Extremities Exam Absent: cyanosis, clubbing, edema - *Routine Skin Exam Present: warm. Absent: rash - *Routine Neurological Exam Present: alert, oriented X3 Assessment and Plan (1) ST elevation myocardial infarction (STEMI) Current visit: Yes Status: Acute Category: Medical Code(s): I21.3 - ST elevation (STEMI) myocardial infarction of unspecified site (2) Hypertension Current visit: Yes Status: Acute Category: Medical Code(s): I10 - Essential (primary) hypertension (3) CAD (coronary artery disease) Current visit: Yes Status: Chronic Category: Medical Code(s): I25.10 - Atherosclerotic heart disease of [place] coronary artery without angina pectoris (4) S/P coronary artery stent placement Current visit: Yes Status: Chronic Category: Surgical Code(s): Z95.5 - Presence of coronary angioplasty implant and graft (5) HLD (hyperlipidemia) Current visit: Yes Status: Chronic Category: Medical Code(s): E78.5 - Hyperlipidemia, unspecified (6) Cardiomyopathy Current visit: Yes Status: Acute Category: Medical Code(s): I42.9 - Cardiomyopathy, unspecified - Assessment and plan all Dx Assessment and Plan for all problems:: Patient likely to be discharged today. Will discuss with Dr. Beltrán. <Brennen Beltrán - Last Filed: 12/25/19 09:04> Internal Medicine - PN: Subj *Date: 12/25/19 *Time: 09:04 Exam Vital signs and Labs for Last 24 Hours: Temp Pulse Resp BP Pulse Ox 97.7 F 87 17 127/81 98 12/25/19 07:48 12/25/19 07:48 12/25/19 07:48 12/25/19 07:48 12/25/19 07:48 Laboratory Results - last 24 hr 12/25/19 05:45: WBC 10.2, RBC 5.20, Hgb 15.8, Hct 45.4, MCV 87.4, MCH 30.4, MCHC 34.8, RDW 14.1, Plt Count 252, MPV 8.0, Neut % (Auto) 74.8, Lymph % (Auto) 16.7, Turner % (Auto) 5.4, Eos % (Auto) 2.4, Baso % (Auto) 0.7, Neut # (Auto) 7.6, Lymph # (Auto) 1.7, Turner # (Auto) 0.6, Eos # (Auto) 0.2, Baso # (Auto) 0.1 12/25/19 05:45: Sodium 134 L, Potassium 4.3, Chloride 103, Carbon Dioxide 28, Anion Gap 7.3, BUN 18, Creatinine 1.00, Estimated Creat Clear 111, Estimated GFR 76, Est GFR ( Amer) 92, Glucose 101 H, Calcium 9.0 I & O for Last 24 hours: Intake & Output 12/22/19 12/23/19 12/24/19 12/25/19 23:59 23:59 23:59 23:59 Intake Total 480 / 480 480 / 480 360 / 360 Output Total 1175 / 1175 Balance -695 / -695 480 / 480 3
--- NOTE | 2019-12-25 08:47 | HMH.PNCARD ---
Subjective Date: 12/25/19 Time: 08:47 Principal diagnosis: STEMI Interval history: 64-year-old white male sitting in bed in no acute distress. Anxious to go home. Telemetry shows no arrhythmias. Patient is clear to be discharged home and resume mowing with his zero turn radius mower. He may even drive a car. 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 Exam Vital signs and Labs for Last 24 Hours: Temp Pulse Resp BP Pulse Ox 97.7 F 87 17 127/81 98 12/25/19 07:48 12/25/19 07:48 12/25/19 07:48 12/25/19 07:48 12/25/19 07:48 Laboratory Results - last 24 hr 12/25/19 05:45: WBC 10.2, RBC 5.20, Hgb 15.8, Hct 45.4, MCV 87.4, MCH 30.4, MCHC 34.8, RDW 14.1, Plt Count 252, MPV 8.0, Neut % (Auto) 74.8, Lymph % (Auto) 16.7, Jenkins % (Auto) 5.4, Eos % (Auto) 2.4, Baso % (Auto) 0.7, Neut # (Auto) 7.6, Lymph # (Auto) 1.7, Jenkins # (Auto) 0.6, Eos # (Auto) 0.2, Baso # (Auto) 0.1 12/25/19 05:45: Sodium 134 L, Potassium 4.3, Chloride 103, Carbon Dioxide 28, Anion Gap 7.3, BUN 18, Creatinine 1.00, Estimated Creat Clear 111, Estimated GFR 76, Est GFR ( Amer) 92, Glucose 101 H, Calcium 9.0 I & O for Last 24 hours: Intake & Output 12/22/19 12/23/19 12/24/19 12/25/19 11:59 11:59 11:59 11:59 Intake Total 840 / 840 480 / 480 Output Total 1175 / 1175 Balance -335 / -335 480 / 480 Weight 230 lb 6 oz 225 lb 12.8 oz 226 lb 7 oz - *Routine HEENT Exam Head: Present: normocephalic Eye: Present: EOMI, PERRL ENT: Present: mucous membranes moist - *Routine Respiratory Exam Present: CTA bilaterally. Absent: accessory muscle use, rales, rhonchi, wheezes - *Routine Cardiovascular Exam Present: RRR. Absent: murmur, gallop, rubs - *Routine Extremities Exam Absent: edema, calf tenderness - *Routine Neurological Exam Present: alert, oriented X3, moving all extremities Progress Note: A&P (1) ST elevation myocardial infarction (STEMI) Status: Acute Current Visit: Yes (2) Hypertension Status: Acute Current Visit: Yes (3) CAD (coronary artery disease) Status: Chronic Current Visit: Yes (4) S/P coronary artery stent placement Status: Chronic Current Visit: Yes (5) HLD (hyperlipidemia) Status: Chronic Current Visit: Yes (6) Cardiomyopathy Status: Acute Current Visit: Yes Assessment and Plan for All Diagnoses:: 1. ST elevation [place] status post drug-eluting stent placement to RCA and ramus. Remaining LAD disease to be addressed in the near future. Continue aspirin and Brilinta although patient has noted some shortness of breath and sinus congestion but he feels that it is related to being off of his nasal spray for the last couple of days. 2. Mild ischemic cardiomyopathy, ejection fraction approximately 50%. Patient is on Coreg 3.125 mg twice daily and lisinopril 5 mg daily. No appreciable evidence of CHF at this time 3. Hyperlipidemia, on atorvastatin 40 mg daily. 4. Abnormal chest x-ray with consolidation or mass in the left side. Follow-up per Dr. Jerel Gamez for discharge from cardiology standpoint patient should see us in 1 week and we will schedule repeat cardiac cath and stenting of his LAD in the next 2 to 4 weeks. 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
--- NOTE | 2019-12-25 09:03 | XR_ITS ---
PROCEDURE: XR CHEST 2V CLINICAL HISTORY: possible left lower lobe consolidation COMPARISON: CR XR CHEST PORTABLE from 12/23/2019 FINDINGS: The cardiomediastinal silhouette and pulmonary vascularity are within normal limits. Previously noted increased density in the left lower lobe is no longer apparent and may have been due to pneumonia or volume loss which has since resolved. Remaining lungs are clear. Degenerative changes thoracic spine IMPRESSION: No acute findings. Dictated b John Cavanaugh MD 12/25/2019 11:45 John Cavanaugh MD in [place] 12/25/2019 11:45
--- NOTE | 2019-12-25 09:11 | SW/DCPLANNER ---
PATIENT ADMITTED TO [facility] WITH CHEST PAIN, HE WAS SEEN BY CARDIOLOGY AND HAS BEEN MEDICALLY CLEARED TO DISCHARGE HOME.. 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 HE IS TO FOLLOW UP WITH CARDIOLOGY IN A COUPLE OF MONTHS...
--- NOTE | 2019-12-25 10:14 | HMH.PHACLD ---
Og Hernandez has received discharge medication counseling on the following medications: NEW MEDICATIONS: ASPIRIN, BRILINTA, CARVEDILOL, LISINOPRIL, LIPITOR DISCUSSED NEW MEDICATIONS WITH PATIENT AND INCLUDING POSSIBLE SIDE EFFECTS. ALSO DISCUSSED WAYS TO REMEMBER TO TAKE MEDICATIONS PRESCRIBED PATIENT IS NEW TO TAKING DAILY MEDICATIONS.
--- NOTE | 2019-12-26 10:30 | HMH.DCSUM ---
General - General Admission date:: 12/23/19 Discharge date: 12/25/19 HPI HPI: HPI narrative from the ER: 64-year-old male presented to the emergency department with chest pain. Patient states that he has had chronic chest pain for some years, however it worsened approximately 2 days ago while he was at work. States that it is a dull nagging pain that was radiating across his chest. It was going into both of his arms bilaterally and into his jaw. He awakened this morning and was having some cold sweats which concerned him. Patient denies any cardiac history. He is a non-smoker. Does have a family history of coronary artery disease. He states that the pain has been persistent for the last 2 days. Not positional. He denies any headache or change in vision. No focal weakness. No abdominal pain or vomiting. No cough or difficulty breathing. Patient's EKG was concerning for acute STEMI. Cardiology was notified. [facility] was activated. Patient was given aspirin, Brilinta as well as heparin. He was then taken to the [facility] Hospital Course Hospital Course: The patient was taken directly to the [facility] and had severe three-vessel coronary disease. He had an acute ST elevation [place] involving the proximal dominant right coronary with successful thrombectomy followed by a drug-eluting stent. He also had critical disease in the circumflex artery with successful drug-eluting stenting. The patient had persistent severe stenosis in the proximal LAD but a preserved ejection fraction and an elevated LVEDP. Cardiology started him on Brilinta and aspirin and made a referral to cardiac rehab. They felt the patient would need to be kept for 48 hours for continuous telemetry monitoring. They wanted him brought back to the [facility] in 2 to 4 weeks to undergo stenting of the proximal LAD. The patient's echo showed an EF of 45% with grade 1 diastolic dysfunction. He was kept for the next 48 hours for monitoring. He felt well after his cath and denied any chest pain or shortness of breath. He was able to eat and move around his room. He was started on some carvedilol secondary to his cardiomyopathy and NH and he had already been started on an LEI inhibitor. His telemetry remained stable for the 48 hours and he was anxious to be discharged home. He was stable to discharge and will follow up with cardiology as he will need a repeat heart cath in 2 to 4 weeks. Of note, the patient did have a chest x-ray which showed consolidation versus a mass on the left side. He will likely need a CT of the chest on an outpatient basis when he is able to have contrast. Objective Vital signs: Temp Pulse Resp BP Pulse Ox 97.7 F 87 17 127/81 98 12/25/19 07:48 12/25/19 07:48 12/25/19 07:48 12/25/19 07:48 12/25/19 08:00 Narrative: - Constitutional no acute distress, chronically ill appearing Comments: awake and alert and joking - *Routine Respiratory Exam Present: CTA bilaterally - *Routine Cardiovascular Exam Present: RRR - *Routine Abdominal Exam Present: soft, normoactive bowel sounds. Absent: tenderness, distended, organomegaly - *Routine Extremities Exam Present: pulses intact. Absent: edema, calf tenderness - *Routine Neurological Exam Present: alert, oriented X3 DS: Diagnosis - Discharge Diagnosis (1) ST elevation myocardial infarction (STEMI) Status: Acute (2) Hypertension Status: Acute (3) CAD (coronary artery disease) Status: Chronic (4) S/P coronary artery stent placement Status: Chronic (5) HLD (hyperlipidemia) Status: Chronic (6) Cardiomyopathy Status: Acute (7) Abnormal chest x-ray Status: Acute Discharge Plan - Patient Discharge Instructions ACTIVITY: Limited activity DIET: low fat, low cholesterol Patient Instructions: Heart Attack, Heart-Healthy Diet, DI for Cardiac Catheterization, DI for Surgical Site Infection - Follow
== END 2019-12-25 11:34 | disposition home or self-care (01) | DRG 247 ==
LOC: ER 09:27 → 2ND 10:26
PROVIDERS: Internal Medicine; Nurse Practitioner Family; Admitting Provider Family Medicine; Emergency Provider Emergency Medicine; PCP Family Medicine; Visit Provider Family Medicine
PROC: 027135Z Dilation of Coronary Artery, Two Arteries with Two Drug-eluting Intraluminal Devices, Percutaneous Approach (ICD-10-PCS; principal; 2019-12-23 09:10)
DX: I21.19 ST elevation (STEMI) myocardial infarction involving other coronary artery of inferior wall (principal); I42.9 Cardiomyopathy, unspecified; I25.10 Atherosclerotic heart disease of native coronary artery without angina pectoris; I11.0 Hypertensive heart disease with heart failure; I50.9 Heart failure, unspecified; E78.5 Hyperlipidemia, unspecified; Z82.49 Family history of ischemic heart disease and other diseases of the circulatory system; Z79.899 Other long term (current) drug therapy
CPT/HCPCS: 36415; 71045; 71046; 80048; 80053; 80061; 80076; 83690; 83735; 83880; 84484; 85025; 85347; 85610; 85730; 87581; 87633; 87798; 92928; 92941; 92973; 93005; 93306; 93458; 96365; 96375; 96376; 99152; 99153; 99285; C1725; C1769; C1876; C9600; C9606; J1644; J2405; Q9967

== ENCOUNTER 2020-01-07 08:29 | Day surgery (SDC) | payer BC, SELFPAY ==
[2020-01-07] VITALS (13 sets, daily range): BP systolic 95–145; BP diastolic 64–91; PULSE 73–84; RESP 16–18; O2SAT 92–98; BMI 32.3
--- NOTE | 2020-01-07 | IR_ITS ---
APPROVED REPORT Patient Location: Outpatient Emergency Dispatcher: YOSSI Moran RT (R) PROCEDURES Drug-eluting stent deployment to the proximal LAD Drug-eluting stent deployment to the circumflex artery's terminal obtuse marginal artery Drug-eluting stent deployment to the dominant right coronary artery's posterior lateral ventricular branch INDICATION Coronary artery disease, Recent ST elevation myocardial infarction Informed consent was obtained prior to the procedure. COMPLICATIONS None Estimated Blood Loss: less than 10ml TECHNIQUE One percent lidocaine used to anesthetize the right anterior aspect of the wrist. The right radial artery was accessed via the Seldinger technique. A 6 Mongolian sheath was placed in the right radial artery. 2.5 mg of verapamil, 800 mcg of nitroglycerin, 1mg Lidocaine and 5000 U Heparin were given through the arterial sheath. Therapeutic heparin was administered giving an ACT out of range and and I Katherine left guide catheter was used to intubate the left main artery. A Choice PT floppy wire was placed in the LAD and a 3 mm x 15 mm resolute anna stent was deployed in the proximal LAD at 18 aarti reducing the severe stenosis to 0%. The wire was then pulled back and placed into the terminal obtuse marginal artery of the circumflex artery and a 2 mm x 8 mm resolute anna stent was deployed at 15 aarti reducing the severe stenosis to 0%. The guide catheter was then pulled out and placed into the right coronary artery where the same wire was placed into the posterior lateral branch with a 2 mm x 12 mm resolute anna stent was deployed at 18 aarti reducing that severe stenosis to 0%. CONSTANCE-3 flow was present before and after the procedure. At the end of the procedure the apparatus was removed the sheath was removed good hemostasis was achieved using TR banding patient was transferred to the postop holding area in stable condition IMPRESSION Successful stenting of the proximal LAD severe disease reduced to 0% with one drug-eluting stent Successful stenting of the terminal obtuse marginal artery off the nondominant circumflex artery reducing critical disease to 0% with one drug-eluting stent Successful stenting of the large posterior lateral branch off the dominant right coronary artery reducing severe disease to 0% with one drug-eluting stent PLAN 1. Continue standard therapy including dual antiplatelet therapy 2. Avoidance of tobacco products 3. Risk factor modification 4. Cardiac rehabilitation 5. LDL less than 55 6. Standard therapy for ischemic heart disease Electronically signed by : Chris Gray, 01/07/2020 11:27:27
[2020-01-07 09:08] LABS: Basophils # 0.1 K/mm3 (0-0.2); Basophils % 0.8 % (0.1-2.0); Eosinophils # 0.3 K/mm3 (0.0-0.4); Eosinophils % 2.9 % (0.1-12.0); Hematocrit 51.1 % (42.0-52.0); Hemoglobin 17.7 g/dL (14.1-18.0); Lymphocytes # 1.6 K/mm3 (0.7-4.5); Lymphocytes % 15.9 % (10-50); Mean Corpuscular HGB Conc 34.6 g/dL (31.8-35.4); Mean Corpuscular Hemoglobin 30.4 pg (27.0-31.2); Mean Corpuscular Volume 87.9 fl (80-94); Mean Platelet Volume 7.9 fl (7.4-10.4); Monocytes # 0.6 K/mm3 (0.1-1.0); Monocytes % 5.7 % (1.7-9.3); Neutrophils # 7.4 K/mm3 (1.8-7.8); Neutrophils % 74.7 % (37.0-80.0); Platelet Count 301 K/mm3 (142-424); Red Blood Count 5.82 M/mm3 (4.60-6.20); Red Cell Distribution Width 14.2 % (11.5-17.5); White Blood Count 9.9 K/mm3 (4.8-10.8)
[2020-01-07 09:17] LABS: Chloride 99 mmol/L (98-107); Potassium 4.1 mmoL/L (3.5-5.1); Sodium 139 mmol/L (136-145)
[2020-01-07 09:20] LABS: Anion Gap 14.1 mEq/L (5-15); Blood Urea Nitrogen 19 mg/dl (9-20); Carbon Dioxide 30 mmol/L (22.0-30.0); Creatinine Clearance Estimated 92 mL/min (50-200); Estimated Glomerular Filt Rate 61 ml/min (>60); GFR (African American) 74 ML/MIN (>60)
[2020-01-07 09:21] LABS: Calcium 9.6 mg/dl (8.4-10.2); Glucose 121 mg/dl (74-100)
[2020-01-07 09:40] LABS: Coronavirus 19 IgG Antibody Negative (Negative); Coronavirus 19 IgM Antibody Negative (Negative)
--- NOTE | 2020-01-07 13:34 | HMH.PHACLD ---
Og Hernandez has received discharge medication counseling on the following medications: CONTINUE MEDICATIONS: ASPIRIN, [place]ART[place]-HCTZ, LIPITOR, CARVEDILOL, BRILINTA
[2020-01-07 13:59] LABS: CATHL Activated Clotting Time > 400 SEC (74-125)
[2020-01-07 14:00] LABS: CATHL Activated Clotting Time > 400 SEC (74-125)
== END 2020-01-07 14:56 | disposition home or self-care (01) ==
LOC: CATHLAB 08:31
PROVIDERS: PCP Family Medicine; Visit Provider Internal Medicine
DX: I25.10 Atherosclerotic heart disease of native coronary artery without angina pectoris (principal); I21.19 ST elevation (STEMI) myocardial infarction involving other coronary artery of inferior wall; I42.9 Cardiomyopathy, unspecified; I11.0 Hypertensive heart disease with heart failure; I50.9 Heart failure, unspecified; E78.5 Hyperlipidemia, unspecified; Z82.49 Family history of ischemic heart disease and other diseases of the circulatory system; Z79.899 Other long term (current) drug therapy
CPT/HCPCS: 80048; 85025; 85347; 86328; 92928; 99152; 99153; C1725; C1760; C1769; C1876; C9600; J1644; Q9967

== ENCOUNTER → 2020-01-14 09:42 | Outpatient (CLI) | payer BC, SELFPAY ==
[2020-01-14 09:55] LABS: Basophils # 0.1 K/mm3 (0-0.2); Eosinophils # 0.4 K/mm3 (0.0-0.4); Eosinophils % 4.9 % (0.1-12.0); Hematocrit 45.9 % (42.0-52.0); Lymphocytes # 1.5 K/mm3 (0.7-4.5); Lymphocytes % 18.9 % (10-50); Mean Corpuscular HGB Conc 34.8 g/dL (31.8-35.4); Mean Corpuscular Hemoglobin 30.7 pg (27.0-31.2); Mean Corpuscular Volume 88.2 fl (80-94); Mean Platelet Volume 8.3 fl (7.4-10.4); Monocytes # 0.4 K/mm3 (0.1-1.0); Monocytes % 5.4 % (1.7-9.3); Neutrophils # 5.7 K/mm3 (1.8-7.8); Neutrophils % 69.9 % (37.0-80.0); Platelet Count 279 K/mm3 (142-424); White Blood Count 8.1 K/mm3 (4.8-10.8)
[2020-01-14 10:03] LABS: Anion Gap 12.1 mEq/L (5-15); Blood Urea Nitrogen 20 mg/dl (9-20); Carbon Dioxide 33 mmol/L (22.0-30.0); Chloride 96 mmol/L (98-107); Estimated Glomerular Filt Rate 61 ml/min (>60); GFR (African American) 74 ML/MIN (>60); Glucose 120 mg/dl (74-100); Potassium 4.1 mmoL/L (3.5-5.1); Sodium 137 mmol/L (136-145)
== END ==
PROVIDERS: Visit Provider Internal Medicine
DX: I25.10 Atherosclerotic heart disease of native coronary artery without angina pectoris (principal); I10 Essential (primary) hypertension; I42.8 Other cardiomyopathies; E78.5 Hyperlipidemia, unspecified
CPT/HCPCS: 36415; 80048; 85025

== ENCOUNTER → 2020-01-15 14:18 | Outpatient (CLI) | payer BC, SELFPAY ==
--- NOTE | 2020-01-15 14:18 | CT_ITS ---
PROCEDURE: CT CHEST WO CON CLINICAL INDICATION: abnl cxr Abnormal cxr, 12/23/19 acute mi 12/23/19 COMPARISON: DX XR CHEST 2V from 12/25/2019 TECHNIQUE: Axial images obtained with sagittal and coronal reformats. All CT scans at the facility use one or more dose reduction, viz: automated exposure control, ma/kV adjustment per patient size (including targeted exams where dose is matched to indication, i.e. head), or iterative reconstruction technique. FINDINGS: HEART AND MEDIASTINAL STRUCTURES: No mediastinal or hilar mass or adenopathy. Coronary artery calcification and/or stent noted. 1.3 cm hypodensity noted in the left thyroid gland LUNGS AND PLEURAL SPACES: There is a 6 mm noncalcified nodule in the right lower lobe along the major fissure. There are 2 subpleural nodules in the right lower lobe posteriorly at 7 mm each. A partially calcified subpleural nodules present in the left lower lobe medially at 12 mm. There is an additional 6 mm noncalcified subpleural nodule in the left lower lobe posteriorly. A 6 mm noncalcified nodules present in the left lower lobe centrally. BONY STRUCTURES: Degenerative changes thoracic spine UPPER ABDOMEN: Unremarkable. ADDITIONAL FINDINGS: No other significant abnormalities. IMPRESSION: 1. Noncalcified bilateral pulmonary nodules indeterminate. Recommend 3 month follow-up to confirm short term stability. 2. 1.4 cm hypodensity left thyroid nodule which may be better evaluated with ultrasound. Dictated by: John Cavanaugh MD 01/16/2020 08:10 John Cavanaugh MD in [place] 01/16/2020 08:10
== END ==
PROVIDERS: PCP Family Medicine; Visit Provider Internal Medicine Cardiovascular Disease
DX: R93.89 Abnormal findings on diagnostic imaging of other specified body structures (principal); I25.10 Atherosclerotic heart disease of native coronary artery without angina pectoris; I21.3 ST elevation (STEMI) myocardial infarction of unspecified site; I42.9 Cardiomyopathy, unspecified; E78.5 Hyperlipidemia, unspecified; I10 Essential (primary) hypertension; Z95.5 Presence of coronary angioplasty implant and graft
CPT/HCPCS: 71250

== ENCOUNTER → 2020-01-20 09:50 | Outpatient (CLI) | payer BC, SELFPAY ==
--- NOTE | 2020-01-20 09:50 | US_ITS ---
PROCEDURE: US THYROID CLINICAL INDICATION: thyroid nodule COMPARISON: CT CT CHEST WO CON from 01/15/2020 FINDINGS: Right lobe: The right lobe is 5 x 1.7 x 1.4 cm. There is diffuse heterogeneous echogenicity. There are multiple small nodules present. 6 mm slightly hypoechoic nodules present in the upper pole. 5 mm slightly hypoechoic nodule mid polar region anteriorly. 6 mm hyperechoic nodule lower pole. 5 mm hypoechoic nodule lower pole Left lobe: 4.3 x 1.9 x 1.7 cm. There is a 1.5 x 1.2 cm isoechoic nodule T rads level 3 Isthmus: Thickened at 7 mm Additional findings: IMPRESSION: Enlarged thyroid gland with bilateral thyroid nodules the largest on the left at 1.5 x 1.2 cm. T rads level 3 mildly suspicious. Suggest 6 month follow-up Dictated by: John Cavanaugh MD 01/21/2020 06:51 John Cavanaugh MD in [place] 01/21/2020 06:51
== END ==
PROVIDERS: PCP Family Medicine; Visit Provider Physician Assistant
DX: E04.1 Nontoxic single thyroid nodule (principal)
CPT/HCPCS: 76536

== ENCOUNTER → 2020-02-01 16:43 | Outpatient (CLI) | payer BC, SELFPAY ==
[2020-02-01 18:56] LABS: Free T4 (Free Thyroxine) 0.87 ng/dl (0.78-2.19)
[2020-02-01 19:10] LABS: Thyroid Stimulating Hormone 7.15 uIU/mL (0.465-4.68)
[2020-02-03 09:19] LABS: Thyroid Peroxidase Antibodies >600 IU/mL (0-34)
[2020-02-04 09:22] LABS: Thyroid Stimulating Immunoglob <0.10 IU/L (0.00-0.55)
[2020-02-06 18:11] LABS: Calcitonin <2.0 pg/mL (0.0-8.4)
== END ==
PROVIDERS: Visit Provider Otolaryngology
DX: E04.1 Nontoxic single thyroid nodule (principal)
CPT/HCPCS: 36415; 82308; 84439; 84443; 84445; 86376

== ENCOUNTER → 2020-02-16 07:58 | Outpatient (CLI) | payer BC, SELFPAY ==
--- NOTE | 2020-02-16 08:01 | CA_ITS ---
APPROVED REPORT EXAM: Comprehensive 2D, Doppler, and color-flow Echocardiogram [facility] Paramedic: Graciela Herrera CRT Ht: 5 ft 10 in Wt: 227lbs BSA: 2.20 BP: 137/75 mmHg Indications: CAD, Hyperlipidemia, Cardiomyopathy, Hypertension/HDD, old mi, 6 stents 2D Dimensions LVOT 2.09 cm (M/F) 1.5-2.5 M-Mode Dimensions RVDd 3.70 cm (0.9-2.6) LVDd 4.78 cm (3.5-5.7) LVDs 3.70 cm (3.5-5.7) IVSd 1.37 cm (0.6-1.1) PWd 1.04 cm (0.6-1.1) EF (Teich) 45.40% FS 22.60% EDV (Teich) 106.50 mL ESV (Teich) 58.10 mL LV Diastology E/A Ratio 0.82 Mitral Valve MV A Velocity 64.00 (40-130 cm/s) Left Ventricle Technically difficult study because of the patient factors and poor acoustic windows, endocardial surfaces are poorly visualized, a repeat study with Definity contrast is recommended if clinically indicated. Left atrium is mildly enlarged, left ventricle is normal size, mild concentric left ventricular hypertrophy, visually estimated ejection fraction approximately 50%, segmental wall motion analysis difficult from this study. Grade 1 diastolic dysfunction seen without tissue Doppler evidence of raise left atrial pressure. Right Ventricle Right atrium and right ventricular normal size and contractility. Aortic Valve Aortic valve is thickened and calcified leaflet chordae display good mobility, there is no aortic stenosis or aortic insufficiency. Mitral Valve Mitral valve is grossly normal, there is mild mitral regurgitation. Tricuspid Valve Tricuspid valve is grossly normal, there is mild tricuspid regurgitation, tricuspid regurgitation jet velocity is inadequate for calculation of the right ventricular systolic pressure. Pulmonic Valve Pulmonic valve is poorly visualized. Great Vessels Aortic root is normal size. Pericardium No significant pericardial effusion noted. Conclusion 1. Technically difficult study, repeat study with Definity contrast is recommended if clinically indicated. Mildly enlarged left atrium, normal left ventricular size, mild concentric left ventricular hypertrophy, visually estimated ejection fraction approximately 50%, segmental wall motion analysis difficult from this study. Grade 1 diastolic dysfunction seen without tissue Doppler evidence of raise left atrial pressure. 2. Mild mitral and tricuspid regurgitation. 3. No significant pericardial effusion noted. Electronically signed by : Kirit Blackwood, 02/16/2020 17:18:55
== END ==
PROVIDERS: PCP Family Medicine; Visit Provider Family Medicine
DX: I25.10 Atherosclerotic heart disease of native coronary artery without angina pectoris (principal); I21.9 Acute myocardial infarction, unspecified
CPT/HCPCS: 93306

== ENCOUNTER → 2020-04-27 07:29 | Outpatient (CLI) | payer BC, SELFPAY ==
--- NOTE | 2020-04-27 | CA_ITS ---
APPROVED REPORT Exam: Pharmacologic Technologist: Fiorella Valdez Ht: 5 ft 10 in Wt: 231 lbs BSA: 2.22 m2 HR: 74 bpm BP: 146/96 mmHg Indications: Chest pain / SOA Medical History Medications: Lisinopril,,,,, Aspirin,,,,, Atorvastatin,,,,, Carvedilol,,,,, CloPIdogrel,,,,, Nitroglycerin,,,,, Losartan-HCTZ,,,,, Stress Test Details Test: LEXISCAN HR Resting HR: 75 bpm Max Heart Rate (APMHR): 158 bpm Max HR Achieved: 119 bpm Target HR (85% APMHR): 134 bpm % of APMHR: 75 Recovery HR: 95 bpm BP Resting BP: 146.0/96.0 mmHg Max BP: 162.0/97.0 mmHg Recovery BP: 142.0/98.0 mmHg ECG Clinical Exercise duration: 04:00 min Highest Stage Achieved: Stress ECG Conclusion Resting EKG: Normal sinus rhythm, poor R wave progression, cannot rule out old inferior [place] Symptoms: Shortness of air, malaise, headache, dizzy. No chest pain. Arrhythmias/Ectopy: Occasional PVC ST-T Changes: No significant changes. Conclusion: Unremarkable Lexiscan stress. Myoview images reported separately. Test Summary RECOVERY 04:00 . . 92 . 142/ 98 . . REST 03:22 . . 75 . 146/ 96 . . Stage 1 . . . . . . . Myoview Injected Stage 1 . . . . . . . Shortness of Breath Stage 1 01:00 . . 112 . . . . Stage 2 . . . . . . . lightheaded Stage 2 01:00 . . 106 . . . . Stage 3 01:00 . . 100 . 155/ 97 . . Stage 4 01:00 . . 97 . 162/ 97 . Stop exercise at 04:00 RECOVERY 01:00 . . 94 . 153/ 99 . . RECOVERY 02:00 . . 99 . 153/ 93 . . RECOVERY 03:00 . . 93 . 142/ 98 . . RECOVERY 04:00 . . 92 . 142/ 98 . . RECOVERY 04:15 . . 85 . 142/ 98 . . Electronically signed by : Kirit Blackwood, 04/28/2020 10:24:45
--- NOTE | 2020-04-27 07:29 | NM_ITS ---
APPROVED REPORT Exam: Nuclear Stress Test Indication: CAD, HTN, C.P., SOB Patient Location: Outpatient Stress Tech: Fiorella Valdez NM Tech:Shirley Ramirez, ARRT, RT (R)(N) Ht: 5 ft 9 in Wt: 235 lbs HR: 74 bpm BP: 146/96 mmHg BSA: 2.21 m2 BMI: 34.6 History: CAD, HTN, C.P., SOB Procedure: Patient received a 0.4 mg of intravenous Lexiscan, resting heart rate 74 bpm, resting blood pressure 146/96 mmHg, with Lexiscan maximum heart rate achived was 106 bpm which is Less than 85 % of the maximum predicted heart rate and blood pressure was 155/97 mmHg. With Lexiscan, patient denied any complaint of chest pain. Electrocardiogram Resting electrocardiogram showed sinus rhythm nonspecific ST-T changes, with Lexiscan there is less than 1.[address] segment depression noted from the baseline EKG. The EKG portion of the Lexiscan is nondiagnostic. Cardiac Stress and Resting SPECT Images: Cardiac Stress and Resting SPECT images were obtained using technetium 99m Myoview 31.8 mCi stress and 10.40 mCi at rest. Gated SPECT for analysis of segmental wall motion and calculation of the ejection fraction also done. Prone imaging was also done. Cardiac stress and resting SPECT images show uniform myocardial activity without segmental perfusion abnormality, computer derived ejection fraction is 50% with no regional wall motion abnormality, right ventricle is normal size and contractility. Conclusion: 1. The EKG portion of the Lexiscan is nondiagnostic. 2. No scintigraphic evidence of reversible ischemia seen, computer derived ejection fraction 50% with no regional wall motion abnormality, right ventricle is normal size and contractility. 3. Normal Lexiscan Myoview study. Electronically signed by : Kirit Blackwood, 04/28/2020 10:55:36
--- NOTE | 2020-04-27 09:02 | HMH.ITSHM ---
Current Home Medications as stated by this patient Og Hernandez or outside industrial sales representative. []NITRO LOSARTAN LISINOPRIL FAMOTIDINE CLOPIDOGREL CARVDEDILOL ATORVASTATIN ASA
== END ==
PROVIDERS: PCP Family Medicine; Visit Provider Internal Medicine Cardiovascular Disease
DX: R07.9 Chest pain, unspecified (principal); I21.11 ST elevation (STEMI) myocardial infarction involving right coronary artery; I25.10 Atherosclerotic heart disease of native coronary artery without angina pectoris; I25.5 Ischemic cardiomyopathy; E78.2 Mixed hyperlipidemia; I10 Essential (primary) hypertension; K21.9 Gastro-esophageal reflux disease without esophagitis; Z95.5 Presence of coronary angioplasty implant and graft
CPT/HCPCS: 78452; 93017; A9502; J2785

== ENCOUNTER → 2020-05-26 11:33 | Outpatient (CLI) | payer BC, SELFPAY ==
[2020-05-26 12:29] LABS: Alanine Aminotransferase 35 U/L (12-78); Albumin Level 4.2 g/dl (3.5-5.0); Alkaline Phosphatase 85 U/L (38-126); Anion Gap 9.1 mEq/L (5-15); Aspartate Amino Transferase 33 U/L (17-59); Bilirubin,Direct 0.1 mg/dl (0.0-0.4); Bilirubin,Indirect 0.8 mg/dL (0.0-0.9); Bilirubin,Total 0.9 mg/dl (0.2-1.3); Bilirubin,Unconjugated 0.8 mg/dL (0.0-1.1); Blood Urea Nitrogen 17 mg/dl (9-20); Calcium 9.4 mg/dl (8.4-10.2); Carbon Dioxide 35 mmol/L (22.0-30.0); Chloride 97 mmol/L (98-107); Chol/HDL Ratio 3.2 (1-3.5); Cholesterol 114 mg/dl (140-200); Estimated Glomerular Filt Rate 61 ml/min (>60); GFR (African American) 74 ML/MIN (>60); Glucose 103 mg/dl (74-100); HDL Cholesterol 36 mg/dl (40-60); Potassium 4.1 mmoL/L (3.5-5.1); Sodium 137 mmol/L (136-145); Total Protein,Serum 7.2 g/dl (6.3-8.2); Triglycerides 134 mg/dl (30-150); VLDL Cholesterol 27 mg/dL (0-40)
[2020-05-26 12:41] LABS: Direct LDL Cholesterol 53.45 mg/dL (100-129)
== END ==
PROVIDERS: Visit Provider Internal Medicine Cardiovascular Disease
DX: I25.10 Atherosclerotic heart disease of native coronary artery without angina pectoris (principal); I25.5 Ischemic cardiomyopathy; I10 Essential (primary) hypertension; E78.2 Mixed hyperlipidemia; K21.9 Gastro-esophageal reflux disease without esophagitis; Z95.5 Presence of coronary angioplasty implant and graft
CPT/HCPCS: 36415; 80048; 80061; 80076

== ENCOUNTER → 2020-06-03 13:38 | Outpatient (CLI) | payer BC, SELFPAY ==
--- NOTE | 2020-06-03 13:59 | US_ITS ---
PROCEDURE: US THYROID CLINICAL INDICATION: thyroid nodule F/u COMPARISON: US US THYROID from 01/20/2020 FINDINGS: Right lobe: 2.3cm x 4.9cm x 1.7cm Left lobe: 1.9cm x 3.8cm x 1.8cm Isthmus: Unremarkable Additional findings: There is bilateral diffuse heterogeneous echogenicity. Multiple small nodules on right as previously described not significantly changed. Dominant nodule on the left 1 point cm also unchanged. IMPRESSION: Stable appearance of the thyroid gland. Multiple small right nodules unchanged. 1.5 cm nodule on the left unchanged Dictated by: John Cavanaugh MD 06/04/2020 06:23 John Cavanaugh MD in [place] 06/04/2020 06:23
[2020-06-03 14:18] LABS: Blood Urea Nitrogen 12 mg/dl (9-20); Estimated Glomerular Filt Rate 68 ml/min (>60); GFR (African American) 82 ML/MIN (>60)
[2020-06-03 14:57] LABS: Free T4 (Free Thyroxine) 0.91 ng/dl (0.78-2.19)
[2020-06-05 18:14] LABS: Thyroid Peroxidase Antibodies >600 IU/mL (0-34)
[2020-06-08 10:36] LABS: Thyroid Stimulating Immunoglob <0.10 IU/L (0.00-0.55)
== END ==
PROVIDERS: Visit Provider Otolaryngology
DX: E04.1 Nontoxic single thyroid nodule (principal); E06.3 Autoimmune thyroiditis
CPT/HCPCS: 76536; 82565; 84439; 84443; 84445; 84520; 86376

== ENCOUNTER → 2020-07-15 11:21 | Outpatient (CLI) | payer BC, SELFPAY ==
[2020-07-15 12:08] LABS: Basophils # 0.1 K/mm3 (0-0.2); Eosinophils # 0.3 K/mm3 (0.0-0.4); Eosinophils % 4.8 % (0.1-12.0); Hemoglobin 15.8 g/dL (14.1-18.0); Lymphocytes # 1.3 K/mm3 (0.7-4.5); Lymphocytes % 18.5 % (10-50); Mean Corpuscular HGB Conc 33.6 g/dL (31.8-35.4); Mean Corpuscular Hemoglobin 28.8 pg (27.0-31.2); Mean Corpuscular Volume 85.6 fl (80-94); Mean Platelet Volume 7.8 fl (7.4-10.4); Monocytes # 0.5 K/mm3 (0.1-1.0); Monocytes % 6.5 % (1.7-9.3); Neutrophils # 4.9 K/mm3 (1.8-7.8); Neutrophils % 69.2 % (37.0-80.0); Platelet Count 246 K/mm3 (142-424); Red Blood Count 5.49 M/mm3 (4.60-6.20); Red Cell Distribution Width 13.9 % (11.5-17.5)
== END ==
PROVIDERS: PCP Family Medicine; Visit Provider Family Medicine
DX: Z20.822 Contact with and (suspected) exposure to COVID-19 (principal)
CPT/HCPCS: 36415; 85025; U0003

== ENCOUNTER → 2020-09-05 12:37 | Outpatient (CLI) | payer BC, SELFPAY ==
[2020-09-05 14:57] LABS: Free T4 (Free Thyroxine) 0.94 ng/dl (0.78-2.19)
[2020-09-08 15:14] LABS: Thyroid Peroxidase Antibodies 590 IU/mL (0-34)
== END ==
PROVIDERS: Visit Provider Otolaryngology
DX: E06.3 Autoimmune thyroiditis (principal)
CPT/HCPCS: 36415; 84439; 86376

== ENCOUNTER → 2020-12-19 10:37 | Outpatient (CLI) | payer BC, SELFPAY ==
[2020-12-19 11:52] LABS: Alanine Aminotransferase 33 U/L (12-78); Albumin Level 4.2 g/dl (3.5-5.0); Alkaline Phosphatase 80 U/L (38-126); Aspartate Amino Transferase 29 U/L (17-59); Bilirubin,Direct 0.3 mg/dl (0.0-0.4); Bilirubin,Indirect 0.5 mg/dL (0.0-0.9); Bilirubin,Total 0.8 mg/dl (0.2-1.3); Bilirubin,Unconjugated 0.5 mg/dL (0.0-1.1); Cholesterol 110 mg/dl (140-200); Triglycerides 179 mg/dl (30-150); VLDL Cholesterol 36 mg/dL (0-40)
[2020-12-19 11:53] LABS: Chol/HDL Ratio 3.3 (1-3.5); HDL Cholesterol 33 mg/dl (40-60); Total Protein,Serum 7.1 g/dl (6.3-8.2)
[2020-12-19 12:09] LABS: Free T4 (Free Thyroxine) 0.86 ng/dl (0.78-2.19)
[2020-12-19 12:23] LABS: Thyroid Stimulating Hormone 5.36 uIU/mL (0.465-4.68)
[2020-12-20 10:23] LABS: Thyroid Peroxidase Antibodies 484 IU/mL (0-34)
[2020-12-21 08:39] LABS: Thyroid Stimulating Immunoglob <0.10 IU/L (0.00-0.55)
== END ==
PROVIDERS: Physician Assistant; Visit Provider Otolaryngology
DX: I25.10 Atherosclerotic heart disease of native coronary artery without angina pectoris (principal); E78.2 Mixed hyperlipidemia; E01.0 Iodine-deficiency related diffuse (endemic) goiter; E06.9 Thyroiditis, unspecified
CPT/HCPCS: 80061; 80076; 84439; 84443; 84445; 86376

== ENCOUNTER → 2020-12-19 12:59 | Outpatient (CLI) | payer BC, SELFPAY ==
--- NOTE | 2020-12-19 13:00 | US_ITS ---
PROCEDURE: US THYROID CLINICAL INDICATION: enlarged thyroid Follow-up thyroid nodules COMPARISON: 06/03/2020 FINDINGS: Right lobe: 4.7 x 2.5 x 1.5 cm. There is heterogeneous echogenicity with small nodules present as previously described unchanged Left lobe: 3.5 x 1.9 x 1.8 cm. Heterogeneous echogenicity. 1.5 cm by 1.4 cm isoechoic nodular region in the mid polar region not significantly changed. No calcifications. Wider than tall. TR level 3 Isthmus: Unremarkable Additional findings: IMPRESSION: Overall no change in the appearance of the thyroid gland with small nodules on the right and a 1.5 cm TR level 3 nodule on the left. Annual follow-up suggested Dictated by: John Cavanaugh MD 12/20/2020 07:39 John Cavanaugh MD in [place] 12/20/2020 07:39
== END ==
PROVIDERS: PCP Family Medicine; Visit Provider Otolaryngology
DX: E01.0 Iodine-deficiency related diffuse (endemic) goiter (principal); E06.9 Thyroiditis, unspecified
CPT/HCPCS: 76536

== ENCOUNTER → 2021-03-14 12:48 | Outpatient (CLI) | payer BC, SELFPAY ==
--- NOTE | 2021-03-14 12:59 | XR_ITS ---
PROCEDURE: XR CHEST 2V CLINICAL HISTORY: COUGH COMPARISON: CR XR CHEST PORTABLE from 12/23/2019 DX XR CHEST 2V from 12/25/[address] CHEST WO CON from 01/15/2020 FINDINGS: The cardiomediastinal silhouette and pulmonary vascularity are within normal limits. The lungs are clear without infiltrates, suspicious nodules, or pleural effusions. No acute bony abnormalities. IMPRESSION: No acute findings. Dictated by: Dr. Juan Ramon Esparza MD 03/14/2021 13:09 Dr. Juan Ramon Esparza MD in [place] 03/14/2021 13:09
[2021-03-14 14:09] LABS: Basophils # 0.1 K/mm3 (0-0.2); Basophils % 1.7 % (0.1-2.0); Eosinophils # 0.3 K/mm3 (0.0-0.4); Eosinophils % 4.2 % (0.1-12.0); Hematocrit 49.5 % (42.0-52.0); Lymphocytes # 1.5 K/mm3 (0.7-4.5); Lymphocytes % 22.7 % (10-50); Mean Corpuscular HGB Conc 32.4 g/dL (31.8-35.4); Mean Corpuscular Hemoglobin 29.1 pg (27.0-31.2); Mean Corpuscular Volume 89.9 fl (80-94); Mean Platelet Volume 8.4 fl (7.4-10.4); Monocytes # 0.4 K/mm3 (0.1-1.0); Monocytes % 5.2 % (1.7-9.3); Neutrophils # 4.5 K/mm3 (1.8-7.8); Neutrophils % 66.1 % (37.0-80.0); Platelet Count 274 K/mm3 (142-424); Red Blood Count 5.51 M/mm3 (4.60-6.20); White Blood Count 6.8 K/mm3 (4.8-10.8)
== END ==
PROVIDERS: PCP Family Medicine; Visit Provider Family Medicine
DX: R05.9 Cough, unspecified (principal)
CPT/HCPCS: 36415; 71046; 85025

== ENCOUNTER → 2021-05-22 13:09 | Outpatient (CLI) | payer BC, SELFPAY ==
[2021-05-22 14:42] LABS: Alanine Aminotransferase 44 U/L (12-78); Aspartate Amino Transferase 42 U/L (17-59); Bilirubin,Unconjugated 0.6 mg/dL (0.0-1.1)
[2021-05-22 14:43] LABS: Alkaline Phosphatase 103 U/L (38-126); Bilirubin,Direct 0.1 mg/dl (0.0-0.4); Bilirubin,Indirect 0.6 mg/dL (0.0-0.9); Bilirubin,Total 0.7 mg/dl (0.2-1.3); Chol/HDL Ratio 3.4 (1-3.5); Cholesterol 96 mg/dl (140-200); HDL Cholesterol 28 mg/dl (40-60); Total Protein,Serum 6.9 g/dl (6.3-8.2); Triglycerides 192 mg/dl (30-150); VLDL Cholesterol 38 mg/dL (0-40)
[2021-05-22 14:54] LABS: Direct LDL Cholesterol 45.61 mg/dL (100-129)
== END ==
PROVIDERS: Visit Provider Physician Assistant
DX: I42.9 Cardiomyopathy, unspecified (principal); I25.10 Atherosclerotic heart disease of native coronary artery without angina pectoris; I11.0 Hypertensive heart disease with heart failure; I50.30 Unspecified diastolic (congestive) heart failure; E78.5 Hyperlipidemia, unspecified; Z95.5 Presence of coronary angioplasty implant and graft
CPT/HCPCS: 36415; 80061; 80076

== ENCOUNTER → 2021-06-01 06:59 | Outpatient (CLI) | payer BC, SELFPAY ==
--- NOTE | 2021-06-01 07:00 | CA_ITS ---
APPROVED REPORT Exam: Pharmacologic Technologist: Viridiana Bourgeois, Ht: 5 ft 10 in Wt: 241 lbs BSA: 2.26 m2 HR: 78 bpm BP: 150/100 mmHg Rhythm: NSR, cannot R/O old inferior [place] Medical History Medical History: HTN, Hyperlipidemia Medications: Aspirin,,,,, Losartan,,,,, Atorvastatin,,,,, Carvedilol,,,,, Plavix,,,,, Nitroglycerin,,,,, PEPcid,,,,, Cardiac Risk Factors: HTN, Hyperlipidemia Stress Test Details Test: LEXISCAN HR Resting HR: 86 bpm Max Heart Rate (APMHR): 157.396462 bpm Max HR Achieved: 117 bpm Target HR (85% APMHR): 133.872639 bpm % of APMHR: 74.52 Recovery HR: 105 bpm BP Resting BP: 150/100 mmHg Max BP: 155/90 mmHg Recovery BP: 155.0/90.0 mmHg ECG Resting ECG: NSR, cannot R/O old inferior AR Clinical Exercise duration: 04:01 min Highest Stage Achieved: Exercise capacity: 1.0 METs Stress ECG Conclusion During lexiscan pt experinced lightheadedness, mild SOA. No CP noted. Occasional PVC , one V. couplet (not captured). No significant change to ST-T. Unremarkable lexiscan stress. Myoview images reported separately. Test Summary REST . . . . . . . Sitting REST 02:35 . . 86 . 150/100 . . Stage 1 01:00 . . 114 . . . . Stage 2 01:00 . . 115 . . . . Stage 3 01:00 . . 112 . 153/ 92 . . Stage 4 01:00 . . 108 . 149/ 95 . . Stage 4 01:01 . . 108 . 149/ 95 . Stop exercise at 04:01 RECOVERY 01:00 . . 107 . 149/ 96 . . RECOVERY 02:00 . . 99 . 155/ 90 . . RECOVERY 03:00 . . 102 . 155/ 90 . . RECOVERY 03:48 . . 101 . 150/102 . . Electronically signed by : Kirit Blackwood MD 06/01/2021 15:37:35
--- NOTE | 2021-06-01 07:00 | NM_ITS ---
APPROVED REPORT Exam: Nuclear Stress Test Indication: CAD, Hx of MD, HTN, High cholesterol, SOB, Syncope, Fatigue Patient Location: Outpatient Stress Tech: Viridiana Bourgeois NM Tech:Shirley Ramirez, ARRT, RT (R)(N) Ht: 5 ft 9 in Wt: 238 lbs HR: 86 bpm BP: 150/100 mmHg BSA: 2.22 m2 BMI: 35.1 History: CAD, Hx of MD, HTN, High cholesterol, SOB, Syncope, Fatigue Procedure: Patient received a 0.4 mg of intravenous Lexiscan, resting heart rate 86 bpm, resting blood pressure 150/100 mmHg, with Lexiscan maximum heart rate achived was 117 bpm which is Less than 85 % of the maximum predicted heart rate and blood pressure was 155/90 mmHg. With Lexiscan, patient denied any complaint of chest pain. Electrocardiogram Resting electrocardiogram shows sinus rhythm, with Lexiscan there is less than 1.[address] segment depression noted from the baseline EKG. The EKG portion of the Lexiscan is nondiagnostic. Cardiac Stress and Resting SPECT Images: Cardiac Stress and Resting SPECT images were obtained using technetium 99m Myoview 31.9 mCi stress and 10.15 mCi at rest. Gated SPECT analysis of segmental wall motion and calculation of the ejection fraction also done. Cardiac stress and rest SPECT images show a fixed defect involving the inferior and posterior basal wall consistent with area of myocardial scarring without significant cheryl-infarct ischemia, computer read ejection fraction is 47% with moderate inferior wall hypokinesis, right ventricle is mildly enlarged with normal contractility. Conclusion: 1. The EKG portion of the Lexiscan is nondiagnostic. 2. Scintigraphic evidence of myocardial scarring involving the inferior and posterior basal wall without significant cheryl-infarct ischemia, completed ejection fraction is 47% with moderate inferior wall hypokinesis, right ventricle is mildly enlarged with normal contractility. 3. Abnormal Lexiscan Myoview study. Electronically signed by : Kirit Blackwood MD 06/01/2021 15:46:55
--- NOTE | 2021-06-01 07:11 | CA_ITS ---
APPROVED REPORT EXAM: Comprehensive 2D, Doppler, and color-flow Echocardiogram Events Specialist: Graciela Herrera CRT Ht: 5 ft 10 in Wt: 241lbs BSA: 2.26 BP: 155/89 mmHg Indications: Obesity, Syncope, CAD, Hyperlipidemia, Cardiomyopathy, Hypertension/HDD Echo Enhancing Agent Indication: Cardiac Mass Agent(s) / Amount(s) Used: Definity 2 cc 2D Dimensions LVOT 2.06 cm (M/F) 1.5-2.5 LA Volume 35.00 mL LA Volume Index 15.50 mL/m2 (M/F) 16-34 M-Mode Dimensions RVDd 3.13 cm (0.9-2.6) LA Diam 3.41 cm (1.9-4.0) LVDd 5.06 cm (3.5-5.7) Ao Diam 4.77 cm (2.0-3.7) LVDs 3.77 cm (3.5-5.7) IVSd 1.65 cm (0.6-1.1) PWd 1.12 cm (0.6-1.1) EF (Teich) 50.00% FS 25.50% EDV (Teich) 121.60 mL TAPSE 1.87 (<1.7) ESV (Teich) 60.80 mL LV Diastology E Decel Time 170.00 (160-240 msec) E/A Ratio 0.81 MED E' 6.80 (< 7 cm/sec) MED A' 8.00 cm/s E'/MED E' Ratio 10.41 (>14) LAT E' 10.80 (<10 cm/sec) LAT A' 14.80 cm/s E/LAT E' Ratio 6.56 (>14) Aortic Valve AO Peak GR. 5.80 mmHg Mitral Valve MV A Velocity 87.00 (40-130 cm/s) E/A Ratio 0.81 MV Decel. Time 170.00 (160-240 ms) Pulmonary Valve PV Peak Velocity 106.00 (50-150 cm/s) Tricuspid Valve TR P. Velocity 217.00 cm/s RAP Estimate 10.00 mmHg RVSP 28.80 mmHg Left Ventricle Left atrium is mildly enlarged, left ventricle is normal size, mild concentric left ventricular hypertrophy, visually estimated ejection fraction 45% with moderate basal septal and inferior basal wall hypokinesis. Grade 1 diastolic dysfunction seen without tissue Doppler evidence of recent atrial pressure. Right Ventricle Right atrium and right ventricular mildly enlarged with normal contractility. Aortic Valve Aortic valve is minimally thickened and fibrosed, there is no aortic stenosis or aortic insufficiency. Mitral Valve Mitral valve is grossly normal, there is trace mitral regurgitation. Tricuspid Valve Tricuspid valve is grossly normal, there is trace tricuspid regurgitation, tricuspid regurgitation jet velocity is inadequate for calculation of the right ventricular systolic pressure. Pulmonic Valve Pulmonic valve is poorly visualized. Great Vessels Aortic root is normal size. Inferior vena cava is poorly visualized. Pericardium No significant pericardial effusion noted. Conclusion 1. Mild biatrial enlargement, normal left ventricular size, mild concentric left ventricular hypertrophy, visually estimated ejection fraction 45% with multiple segmental wall motion abnormalities described above, grade 1 diastolic dysfunction seen without tissue Doppler evidence of raised left atrial pressure. 2. Mildly enlarged right ventricle with normal contractility. 3. Trace mitral and tricuspid regurgitation. 4. No significant pericardial effusion noted. 5. Inferior vena cava is poorly visualized. Electronically signed by : Kirit Blackwood MD 06/01/2021 16:01:00
--- NOTE | 2021-06-01 08:24 | HMH.ITSHM ---
Current Home Medications as stated by this patient Og Hernandez or lead customer service representative. []ATORVASTATIN CARVEDILOL LOSARTAN CLOPIDOGREL ASA
== END ==
LOC: RAD 07:00
PROVIDERS: PCP Family Medicine; Visit Provider Physician Assistant
DX: R55 Syncope and collapse (principal); I25.10 Atherosclerotic heart disease of native coronary artery without angina pectoris; I25.5 Ischemic cardiomyopathy; I50.30 Unspecified diastolic (congestive) heart failure; I10 Essential (primary) hypertension; E78.2 Mixed hyperlipidemia; Z95.5 Presence of coronary angioplasty implant and graft
CPT/HCPCS: 78452; 93017; 93306; A9502; J2785; Q9957

== ENCOUNTER → 2021-06-05 10:24 | Outpatient (CLI) | payer BC, SELFPAY ==
[2021-06-05 17:52] LABS: Basophils # 0.1 K/mm3 (0-0.2); Basophils % 1.5 % (0.1-2.0); Hemoglobin 15.5 g/dL (14.1-18.0); Lymphocytes # 0.7 K/mm3 (0.7-4.5); Lymphocytes % 18.8 % (10-50); Mean Corpuscular HGB Conc 32.2 g/dL (31.8-35.4); Mean Corpuscular Hemoglobin 29.2 pg (27.0-31.2); Mean Corpuscular Volume 90.7 fl (80-94); Mean Platelet Volume 8.4 fl (7.4-10.4); Monocytes # 0.2 K/mm3 (0.1-1.0); Monocytes % 6.3 % (1.7-9.3); Neutrophils # 2.8 K/mm3 (1.8-7.8); Neutrophils % 72.5 % (37.0-80.0); Platelet Count 231 K/mm3 (142-424); Red Blood Count 5.29 M/mm3 (4.60-6.20); Red Cell Distribution Width 14.2 % (11.5-17.5); White Blood Count 3.9 K/mm3 (4.8-10.8)
== END ==
PROVIDERS: PCP Family Medicine; Visit Provider Nurse Practitioner
DX: Z20.822 Contact with and (suspected) exposure to COVID-19 (principal)
CPT/HCPCS: 36415; 85025; C9803; U0003; U0005

== ENCOUNTER → 2021-06-08 14:32 | Outpatient (CLI) | payer BC, SELFPAY ==
--- NOTE | 2021-06-08 14:37 | XR_ITS ---
FINAL REPORT CLINICAL HISTORY: GENERALIZED ABDOMINAL PAIN FINDINGS: Flat and upright views of the abdomen demonstrate multiple air-filled bowel loops with fluid levels in a nonspecific pattern. There is no free air. There are no abnormal calcifications. IMPRESSION: Nonspecific air-filled bowel loops with fluid levels could represent ileus or enteritis. Reviewed, Interpreted and Dictated by Figueroa Merino III, MD Transcribed by Mat Darnell Authenticated by Figueroa Merino III, MD on 06/08/2021 03:27:59 PM [facility]
== END ==
PROVIDERS: PCP Family Medicine; Visit Provider Family Medicine
DX: R10.84 Generalized abdominal pain (principal)
CPT/HCPCS: 74019

== ENCOUNTER → 2021-07-08 09:55 | Outpatient (CLI) | payer BC, SELFPAY ==
[2021-07-08 11:13] LABS: Basophils # 0.1 K/mm3 (0-0.2); Basophils % 1.4 % (0.1-2.0); Eosinophils # 0.7 K/mm3 (0.0-0.4); Eosinophils % 9.7 % (0.1-12.0); Hematocrit 47.4 % (42.0-52.0); Hemoglobin 15.6 g/dL (14.1-18.0); Lymphocytes # 1.7 K/mm3 (0.7-4.5); Lymphocytes % 22.6 % (10-50); Mean Corpuscular HGB Conc 32.9 g/dL (31.8-35.4); Mean Corpuscular Hemoglobin 28.9 pg (27.0-31.2); Mean Corpuscular Volume 87.8 fl (80-94); Monocytes # 0.4 K/mm3 (0.1-1.0); Monocytes % 4.7 % (1.7-9.3); Neutrophils # 4.5 K/mm3 (1.8-7.8); Neutrophils % 61.6 % (37.0-80.0); Platelet Count 283 K/mm3 (142-424); Red Blood Count 5.39 M/mm3 (4.60-6.20); White Blood Count 7.4 K/mm3 (4.8-10.8)
[2021-07-08 13:33] LABS: Chloride 100 mmol/L (98-107)
[2021-07-08 13:34] LABS: Potassium 4.5 mmoL/L (3.5-5.1)
[2021-07-08 13:35] LABS: Sodium 135 mmol/L (136-145)
[2021-07-08 13:36] LABS: Blood Urea Nitrogen 16 mg/dl (9-20); Estimated Glomerular Filt Rate 75 ml/min (>60); GFR (African American) 91 ML/MIN (>60)
[2021-07-08 13:38] LABS: Anion Gap 5.5 mEq/L (5-15); Calcium 8.5 mg/dl (8.4-10.2); Carbon Dioxide 34 mmol/L (22.0-30.0); Glucose 93 mg/dl (74-100)
== END ==
PROVIDERS: Visit Provider Physician Assistant
DX: Z01.812 Encounter for preprocedural laboratory examination (principal); Z11.52 Encounter for screening for COVID-19; R55 Syncope and collapse; I25.10 Atherosclerotic heart disease of native coronary artery without angina pectoris; I25.5 Ischemic cardiomyopathy; I10 Essential (primary) hypertension; E78.2 Mixed hyperlipidemia; K21.9 Gastro-esophageal reflux disease without esophagitis; Z95.5 Presence of coronary angioplasty implant and graft
CPT/HCPCS: 36415; 80048; 85025; C9803; U0003; U0005

== ENCOUNTER 2021-07-10 09:23 | Day surgery (SDC) | payer BC, SELFPAY ==
[2021-07-10] VITALS (15 sets, daily range): BP systolic 112–164; BP diastolic 49–107; PULSE 63–101; RESP 16–19; TEMP 36.8; O2SAT 95–99; BMI 33.4
--- NOTE | 2021-07-10 07:01 | IR_ITS ---
APPROVED REPORT Patient Location: Outpatient PROCEDURES Left heart catheterization Left ventriculogram Selective coronary angiogram Drug-eluting stent deployment to the proximal mid circumflex artery INDICATION Coronary artery disease, Abnormal Myoview Informed consent was obtained prior to the procedure. COMPLICATIONS None Estimated Blood Loss: Less than 10 mls TECHNIQUE One percent lidocaine used to anesthetize the right anterior aspect of the wrist. The right radial artery was accessed via the Seldinger technique. A 6 Pashto sheath was placed in the right radial artery. 2.5 mg of verapamil, 800 mcg of nitroglycerin, 1mg Lidocaine and 5000 U Heparin were given through the arterial sheath. The TeamRockpa catheter was also used to perform left heart catheterization, left ventriculogram and selective coronary angiogram. At the end the diagnostic angiogram therapeutic heparin was administered giving a therapeutic ACT and the guide catheter was placed in the left main artery. The Choice PT extra-support wire was placed distally in the circumflex artery and a 3 mm x 18 mm resolute Monroe stent was placed in the proximal to mid segment at 20 aarti reducing the stenosis to 0%. CONSTANCE-3 flow was present before and after the procedure. At the end of the procedure the apparatus was removed the sheath was removed and hemostasis was achieved using TR banding patient was transferred to the postop holding area stable condition ANGIOGRAPHIC RESULTS The left main artery Normal The left anterior descending artery The first 25 mm of the proximal LAD is normal. It then tapers into a 40 to 50% stenosis proximal to the first large substantive diagonal artery. The vessel is smaller after the first diagonal artery of approximately 2 mm perhaps 2.5 mm in diameter. This has diffuse 50% mid vessel stenoses. The LAD is unusually small and does not reach the apex. There is a tiny first diagonal artery less than 1 mm which has ostial greater than 90% stenosis while the second diagonal artery which technically is the first substantive diagonal artery has an ostial proximal 70% stenosis. This first substantive diagonal artery is 1.5 mm in diameter The circumflex artery Is nondominant yet still large vessel which has a proximal to mid vessel concentric 70% stenosis. Large first obtuse marginal artery which is 3 mm in diameter has an ostial 70 to 80% stenosis. A moderate sized ramus intermedius branches off the left main artery and has a stent in the ostial proximal segment which is widely patent free of in-stent restenosis with excellent distal transitioning The right coronary artery Is dominant and has a stent in the proximal to mid segment which is widely patent with minimal in-stent restenosis. There is an additional 30 to 40% distal stenosis. The distal dominant right coronary branches a large posterior descending artery which has mid vessel 50 and then an additional 60% stenosis. The posterior lateral branch is a large system and has a large superior branch which has proximal 60% stenosis as well as an inferior branch which has a stent in the proximal segment which is widely patent with minimal in-stent restenosis and excellent distal transitioning The CELIS ventriculogram reveals Preserved at 50% The left ventricular end-diastolic pressure 20 mmHg IMPRESSION Coronary disease as described above Unusually small mid to distal LAD system with moderate disease as described above Persistent moderate to severe disease in the large first obtuse marginal artery Severe disease in the mid circumflex artery with successful stenting reducing the stenosis to 0% Persistent disease in the right coronary as described above Michael
[2021-07-10 12:28] LABS: CATHL Activated Clotting Time 374 SEC (74-125)
--- NOTE | 2021-07-10 14:07 | HMH.PHACLD ---
Og Hernandez has received discharge medication counseling on the following medications: ASPIRIN PLAVIX LOSARTAN/HCTZ LIPITOR CARVEDILOL PATIENT WAS ALREADY TAKING ALL OF THESE MEDICATIONS FROM PRIOR STENT. CONTINUING ALL CURRENT MEDICATIONS. PATIENT VERBALZIED UNDERSTANDING AND HAD NO QUESTIONS AT THIS TIME. -MARY ALICE OKEEFE, PHARMD
== END 2021-07-10 15:06 | disposition home or self-care (01) ==
LOC: CATHLAB 09:24
PROVIDERS: PCP Family Medicine; Visit Provider Internal Medicine
DX: I25.118 Atherosclerotic heart disease of native coronary artery with other forms of angina pectoris (principal); E78.2 Mixed hyperlipidemia; I10 Essential (primary) hypertension; I25.5 Ischemic cardiomyopathy; K21.9 Gastro-esophageal reflux disease without esophagitis; R55 Syncope and collapse; R94.39 Abnormal result of other cardiovascular function study; Z95.5 Presence of coronary angioplasty implant and graft; Z79.899 Other long term (current) drug therapy; Z79.01 Long term (current) use of anticoagulants
CPT/HCPCS: 85347; 92928; 93458; 99152; 99153; C1725; C1760; C1769; C1876; C9600; J1644; Q9967

== ENCOUNTER → 2021-07-18 14:03 | Outpatient (CLI) | payer BC, SELFPAY ==
--- NOTE | 2021-07-18 14:14 | XR_ITS ---
FINAL REPORT CLINICAL HISTORY: coughing, PRODUCTIVE COUGH WITH YELLOW MUCUS, HX OF CARDIAC STENT 1 WEEK AGO COMPARISON: 03/14/2021 FINDINGS: Two views of the chest were obtained. The heart size and pulmonary vascularity are within normal limits. The mediastinum is normal. No acute pulmonary abnormality is identified. There is no pneumothorax. The bony thorax is intact. IMPRESSION: No active cardiopulmonary disease. Reviewed, Interpreted and Dictated by Figueroa Merino III, MD Transcribed by Mackenzie Robles Authenticated by Figueroa Merino III, MD on 07/18/2021 03:05:08 PM [facility]
== END ==
PROVIDERS: PCP Family Medicine; Visit Provider Physician Assistant
DX: R05.9 Cough, unspecified (principal); R09.89 Other specified symptoms and signs involving the circulatory and respiratory systems
CPT/HCPCS: 71046

== ENCOUNTER → 2021-12-06 08:04 | Outpatient (CLI) | payer BC, SELFPAY ==
[2021-12-06 09:36] LABS: Alanine Aminotransferase 45 U/L (12-78); Albumin Level 3.9 g/dl (3.5-5.0); Alkaline Phosphatase 108 U/L (38-126); Anion Gap 10.2 mEq/L (5-15); Aspartate Amino Transferase 46 U/L (17-59); Bilirubin,Indirect 0.6 mg/dL (0.0-0.9); Bilirubin,Total 0.6 mg/dl (0.2-1.3); Blood Urea Nitrogen 21 mg/dl (9-20); Calcium 9.1 mg/dl (8.4-10.2); Carbon Dioxide 30 mmol/L (22.0-30.0); Chloride 102 mmol/L (98-107); Chol/HDL Ratio 3.2 (1-3.5); Cholesterol 94 mg/dl (140-200); Estimated Glomerular Filt Rate 75 ml/min (>60); GFR (African American) 91 ML/MIN (>60); Glucose 112 mg/dl (74-100); HDL Cholesterol 29 mg/dl (40-60); Potassium 4.2 mmoL/L (3.5-5.1); Sodium 138 mmol/L (136-145); Triglycerides 116 mg/dl (30-150); VLDL Cholesterol 23 mg/dL (0-40)
[2021-12-06 09:51] LABS: Free T4 (Free Thyroxine) 0.96 ng/dl (0.78-2.19)
[2021-12-06 10:05] LABS: Thyroid Stimulating Hormone 3.45 uIU/mL (0.465-4.68)
[2021-12-06 12:57] LABS: Basophils # 0.1 K/mm3 (0-0.2); Basophils % 1.1 % (0.1-2.0); Eosinophils # 0.2 K/mm3 (0.0-0.4); Eosinophils % 3.3 % (0.1-12.0); Hematocrit 44.1 % (42.0-52.0); Hemoglobin 14.8 g/dL (14.1-18.0); Lymphocytes # 1.5 K/mm3 (0.7-4.5); Lymphocytes % 24.4 % (10-50); Mean Corpuscular HGB Conc 33.6 g/dL (31.8-35.4); Mean Corpuscular Hemoglobin 28.4 pg (27.0-31.2); Mean Corpuscular Volume 84.5 fl (80-94); Mean Platelet Volume 8.1 fl (7.4-10.4); Monocytes # 0.4 K/mm3 (0.1-1.0); Monocytes % 6.5 % (1.7-9.3); Neutrophils # 3.9 K/mm3 (1.8-7.8); Neutrophils % 64.7 % (37.0-80.0); Platelet Count 304 K/mm3 (142-424); Red Blood Count 5.22 M/mm3 (4.60-6.20); Red Cell Distribution Width 14.5 % (11.5-17.5)
== END ==
LOC: LAB 08:04
PROVIDERS: PCP Family Medicine; Visit Provider Nurse Practitioner Family
DX: I25.10 Atherosclerotic heart disease of native coronary artery without angina pectoris (principal); E78.2 Mixed hyperlipidemia
CPT/HCPCS: 36415; 80048; 80061; 80076; 84439; 84443; 85025

== ENCOUNTER 2022-01-19 12:08 | Emergency (ER) | payer BC, SELFPAY ==
[2022-01-19 12:20] VITALS: BP 159/96; PULSE 101; RESP 18; TEMP 36.6; O2SAT 97; BMI 39.7
--- NOTE | 2022-01-19 12:50 | EXP.UTC ---
Discharge Plan Disposition Patient Disposition: Home, Self-Care Condition: Good Prescriptions Prescriptions: New fluticasone propionate [Flonase Allergy Relief] 50 mcg/actuation spray,suspension 1 spray intranasal DAILY PRN (Reason: allergy symptoms) Qty: 16 0RF Rx Instructions: administer into each nostril No Action amoxicillin 500 mg capsule 500 mg PO TID Label Comments: TAKE 1 CAPSULE BY MOUTH THREE TIMES DAILY nitroglycerin 0.4 mg tablet, sublingual 0.4 mg SUBLINGUAL Q5M PRN (Reason: chest pain) Qty: 20 0RF Rx Instructions: do not exceed 3 doses per episode carvedilol 3.125 mg tablet 3.125 mg PO BID Qty: 180 3RF atorvastatin 40 mg tablet 40 mg PO HS Qty: 90 3RF (DME) blood pressure monitor Kit See Rx Instructions .ROUTE .MEDSUPPLY Qty: 1 0RF Rx Instructions: As directed losartan-hydrochlorothiazide 50-12.5 mg tablet See Rx Instructions .Route .COMPLEX Qty: 30 5RF Rx Instructions: TAKE 1 TABLET BY MOUTH ONCE DAILY FOR HIGH BLOOD PRESSURE aspirin 81 MG tablet,delayed release (DR/EC) 81 mg PO DAILY clopidogrel 75 MG tablet 75 mg PO DAILY famotidine 20 MG tablet 20 mg PO DAILY Referrals Follow up/Referrals: Brennen Beltrán MD [Primary Care Provider] - See instructions Activity Restrictions/Add. Instructions Additional Instructions/Restrictions: Your medicaiton was called into pharmacy Follow up with Eye Doctor if no improvement or any worsening of symptoms continue taking Claritan as advised Clinical Impressions Clinical Impression: Allergic rhinitis, Eye irritation Instructions Patient Instructions: DI for Allergic Rhinitis, Prednisolone Ophthalmic Discharge ED Provider: Trudi Roberts [facility] General Stated complaint: eyes red, itchy throat Mode of Arrival: Ambulatory Source of Information: Patient Limitations: No Limitations Time Seen by Provider: 01/19/22 12:50 Description of Symptoms (Recalled from Triage Doc. by RN): PATIENT C/O ITCHY, WATERY EYES, SNEEZING, AND COUGH X 1 WEEK HEENT Symptoms (Recalled from RN notes): Yes Resp Symptoms (Recalled from RN notes): Yes Skin Symptoms (Recalled from RN notes): No MS Symptoms (Recalled from RN notes): No Functional Status (Recalled from RN notes): WNL History of Present Illness Provider Complaint: Patient states that he gets bad allergies about this time every year States that for the last week he has been having itchy watery red eyes, runny nose, and cough States that he usually gets eye drops to help with his eyes States that he is unsure what kind they give him but they worked well and was hoping to get some again Related Data Home Medications Medication Instructions Recorded Confirmed aspirin 81 mg tablet,delayed 81 mg PO DAILY Blood thinner 01/07/20 12/05/21 release clopidogrel 75 mg tablet 75 mg PO DAILY Blood thinner 07/10/21 12/05/21 famotidine 20 mg tablet 20 mg PO DAILY STOMACH 07/10/21 12/05/21 amoxicillin 500 mg capsule 500 mg PO TID 10/17/21 12/05/21 Previous Rx's Medication Instructions Recorded nitroglycerin 0.4 mg sublingual 0.4 mg sublingual Q5M PRN chest 01/18/20 tablet pain #20 tabs atorvastatin 40 mg tablet 40 mg PO HS High cholesterol #90 01/26/21 tabs carvedilol 3.125 mg tablet 3.125 mg PO BID High blood 01/26/21 pressure #180 tabs blood pressure monitor #1 ea 07/18/21 losartan 50 mg-hydrochlorothiazide See Rx Instructions .Route 09/11/21 12.5 mg tablet .COMPLEX BLOOD PRESSURE #30 tabs fluticasone propionate 50 1 spray intranasal DAILY PRN 01/19/22 mcg/actuation nasal allergy symptoms #16 grams spray,suspension (Flonase Allergy Relief) Allergies Allergy/AdvReac Type Severity Reaction Status Date / Time No Known Allergies Allergy Verified 12/05/21 08:40 Worker's Comp Is this a Worker's Comp case?: No [facility] Medical History (Updated 01/19/22 @ 13:11 by Trudi Roberts APRN) Abnormal cardiova
[2022-01-19 13:27] VITALS: BP 159/96; PULSE 101; RESP 18; TEMP 36.6; O2SAT 97
== END 2022-01-19 13:30 | disposition home or self-care (01) ==
PROVIDERS: Emergency Provider Nurse Practitioner; PCP Family Medicine
DX: J30.9 Allergic rhinitis, unspecified (principal); R07.89 Other chest pain; R09.89 Other specified symptoms and signs involving the circulatory and respiratory systems; R94.31 Abnormal electrocardiogram [ECG] [EKG]; I20.9 Angina pectoris, unspecified; K21.9 Gastro-esophageal reflux disease without esophagitis; E04.1 Nontoxic single thyroid nodule; Z79.02 Long term (current) use of antithrombotics/antiplatelets; Z79.51 Long term (current) use of inhaled steroids; Z79.52 Long term (current) use of systemic steroids; Z79.899 Other long term (current) drug therapy
CPT/HCPCS: 99213; G0463

== ENCOUNTER → 2022-09-24 13:06 | Outpatient (CLI) | payer BC, SELFPAY ==
--- NOTE | 2022-09-24 13:07 | CA_ITS ---
FINAL REPORT CLINICAL HISTORY: VISUAL DISTURBANCE,DIZZINESS FINDINGS: An ultrasound of the carotid arteries was performed. Duplex Doppler evaluation with spectral analysis was performed. The peak systolic velocity of the right common carotid artery is 97 cm/s. The peak systolic velocity of the right internal carotid artery is 94 cm/s and end diastolic velocity 32 cm/s. No appreciable plaque disease is present. The right external carotid artery is patent. The right vertebral artery is patent with antegrade flow. ICA/CCA ratio: 1.13 The peak systolic velocity of the left common carotid artery is 110 cm/s. The peak systolic velocity of the left internal carotid artery is 96 cm/s and end diastolic velocity 20 cm/s. No appreciable plaque disease is present. The left external carotid artery is patent. The left vertebral artery is patent with antegrade flow. ICA/CCA ratio: 1.18 No demonstrable flow in the left vertebral artery which could be congenital, technical or due to acquired occlusion. Antegrade flow in the right vertebral artery. IMPRESSION: Less than 50% bilateral carotid stenosis. No demonstrable flow in the left vertebral artery which could be congenital, technical or due to acquired occlusion. Reviewed, Interpreted and Dictated by Shakira Fang MD Transcribed by Mat Darnell Authenticated and [facility]
--- NOTE | 2022-09-24 13:52 | CT_ITS ---
FINAL REPORT TECHNIQUE: Noncontrast exam CLINICAL HISTORY: vision disturbance FINDINGS: Diminished attenuation in the deep white matter probably due to moderate chronic changes. No abnormal density is seen. Ventricles are normal. There is no hemorrhage. No mass effect is seen. Bone windows show no evidence of fracture. IMPRESSION: No acute findings Reviewed, Interpreted and Dictated by Shakira Fang MD Transcribed by Mat Darnell Authenticated and [facility]
== END ==
LOC: RT 13:07
PROVIDERS: PCP Family Medicine; Visit Provider Nurse Practitioner Family
DX: H54.7 Unspecified visual loss (principal); I25.10 Atherosclerotic heart disease of native coronary artery without angina pectoris; I25.5 Ischemic cardiomyopathy; I51.89 Other ill-defined heart diseases; E78.2 Mixed hyperlipidemia; Z95.5 Presence of coronary angioplasty implant and graft
CPT/HCPCS: 70450; 93880

== ENCOUNTER → 2022-12-04 09:33 | Outpatient (CLI) | payer BC, SELFPAY ==
--- NOTE | 2022-12-04 09:41 | XR_ITS ---
FINAL REPORT CLINICAL HISTORY: bent thumb backwards, pain in left posterior thumb FINDINGS: AP, oblique and lateral views of the thumb were obtained. There is no prior exam for comparison. There is no acute fracture or dislocation. There is mild degenerative joint disease present. The soft tissues appear normal. IMPRESSION: No acute osseous abnormality of the thumb. Reviewed, Interpreted and Dictated by Giselle Rodriguez MD Transcribed by Susan Ambriz Authenticated and [facility]
== END ==
LOC: RAD 09:34
PROVIDERS: PCP Family Medicine; Visit Provider Family Medicine
DX: M79.645 Pain in left finger(s) (principal)
CPT/HCPCS: 73140

== ENCOUNTER 2023-05-13 08:04 | Emergency (ER) | payer BC, SELFPAY ==
[2023-05-13 08:05] VITALS: BP 149/92; PULSE 63; RESP 18; TEMP 36.6; O2SAT 99; BMI 29.3
--- NOTE | 2023-05-13 08:10 | CT_ITS ---
PROCEDURE INFORMATION: Exam: CT Abdomen And Pelvis With Contrast Exam date and time: 05/13/2023 8:58 AM Age: 67 years old Clinical indication: Pain; Nausea; Other: R flank; Additional info: R flank pain and tenderness, nausea TECHNIQUE: Imaging protocol: Computed tomography of the abdomen and pelvis with contrast. Radiation optimization: All CT scans at this facility use at least one of these dose optimization techniques: automated exposure control; mA and/or kV adjustment per patient size (includes targeted exams where dose is matched to clinical indication); or iterative reconstruction. Contrast material: ISOVUE; Contrast volume: 75 ml; Contrast route: IV; REPORTING DATA: Count of CT and Cardiac NM exams in prior 12 months: This patient has received [address] and 0 known cardiac nuclear medicine studies in the 12 months prior to the current study. COMPARISON: CR XR ABDOMEN MIN 2V 06/08/2021 2:40 PM FINDINGS: Lungs: 1.3 cm circumscribed pulmonary nodule with central calcification left lower lung zone possibly granulomatous in nature. Additional small circumscribed noncalcified pulmonary nodules measuring up to 6 mm more nonspecific. Liver: Normal. No mass. Gallbladder and bile ducts: Normal. No calcified stones. No ductal dilation. Pancreas: Unremarkable. Main pancreatic duct is not significantly dilated. Spleen: Normal. No splenomegaly. Adrenal glands: Normal. No mass. Kidneys and ureters: Small cortical cyst upper pole left kidney otherwise kidneys are unremarkable. No calculi hydronephrosis. Stomach and bowel: Moderate degree of retained stool more pronounced within the right half of the large bowel that may reflect some degree of constipation. Sigmoid diverticulosis without evidence of acute diverticulitis. Appendix: No evidence of acute appendicitis. Intraperitoneal space: Unremarkable. No free air. No significant fluid collection. Vasculature: Scattered atherosclerotic changes of the abdominal aorta and iliac vessels. No aortic aneurysm. Lymph nodes: Unremarkable. No enlarged lymph nodes. Urinary bladder: Unremarkable as visualized. Reproductive: Prostate gland is mildly enlarged. Bones/joints: Unremarkable. No acute fracture. Soft tissues: Unremarkable. IMPRESSION: 1. No acute findings within the abdomen or pelvis. 2. Unremarkable CT exam of the kidneys ureters and bladder. 3. Moderate degree of retained stool. Please correlate for constipation. 4. Sigmoid diverticulosis. No evidence of acute diverticulitis. 5. Multiple pulmonary nodules largest measures 1.3 cm was central calcification favoring benign etiology while others are noncalcified and nonspecific.. Recommend dedicated nonemergent CT chest for further assessment.
--- NOTE | 2023-05-13 08:12 | HMH.EDGENADL ---
Discharge Plan Disposition Patient Disposition: Home, Self-Care Condition: Fair Prescriptions Prescriptions: New ondansetron HCl 4 mg tablet 4 mg PO Q6H PRN (Reason: nausea and vomiting) Qty: 20 0RF methocarbamol 500 mg tablet 500 mg PO Q8H PRN (Reason: muscle spasm) Qty: 20 0RF No Action aspirin 81 mg tablet,delayed release (DR/EC) 81 mg PO DAILY Qty: 30 2RF (DME) blood pressure monitor Kit See Rx Instructions .ROUTE .MEDSUPPLY Qty: 1 0RF Rx Instructions: As directed nitroglycerin 0.4 mg tablet, sublingual 0.4 mg SUBLINGUAL Q5M PRN (Reason: chest pain) Qty: 20 0RF Rx Instructions: do not exceed 3 doses per episode atorvastatin 40 mg tablet 40 mg PO HS Qty: 90 3RF carvedilol 3.125 mg tablet 3.125 mg PO BID Qty: 180 3RF clopidogrel 75 mg tablet 75 mg PO DAILY Qty: 90 3RF famotidine 20 mg tablet 20 mg PO DAILY Qty: 90 3RF losartan-hydrochlorothiazide 50-12.5 mg tablet See Rx Instructions .Route .COMPLEX Qty: 90 3RF Rx Instructions: TAKE 1 TABLET BY MOUTH ONCE DAILY FOR HIGH BLOOD PRESSURE fluticasone propionate [Flonase Allergy Relief] 50 mcg/actuation spray,suspension 1 spray intranasal DAILY PRN (Reason: allergy symptoms) Qty: 16 0RF Rx Instructions: administer into each nostril Referrals Follow up/Referrals: Brennen Beltrán MD [Primary Care Provider] - See instructions Activity Restrictions/Add. Instructions Additional Instructions/Restrictions: You were evaluated in the ER today for right-sided back pain. We did not identify any obvious cause of this. I have prescribed a muscle relaxant as well as Zofran if you have persistent nausea. Take all other medications as previously prescribed. Take Tylenol or ibuprofen if needed. You do have a lung nodule that was identified on CT imaging. Make an appointment with your primary care physician to discuss follow-up of this and for reevaluation of your ongoing pain. Also discussed your elevated liver enzymes. Return to the ER with any new, worsening, or otherwise concerning symptoms. Clinical Impressions Clinical Impression: Lung nodule, Transaminitis Acute right-sided back pain Qualifiers: Back pain location: low back pain Sciatica presence: without sciatica Qualified Code(s): M54.50 - Low back pain, unspecified Instructions Patient Instructions: DI for Low Back Pain Discharge ED Provider: Nyla Villar Adult HPI General Chief complaint: Back Pain/Injury Stated complaint: pain in lower rt back Time Seen by Provider: 05/13/23 08:15 History of Present Illness HPI narrative: This 67-year-old male with history of prior NH with 7 stents, hyperlipidemia, HFpEF, GERD presents to the ER with concerns of right flank/mid back pain radiating around the side. Patient states his symptoms started last night. He went to bed hoping it would improve but this morning it was persistent. He describes it as a sharp ache starting in the high right flank and radiating part way around the side. He states it is tender to push on. He also states he has some nausea without vomiting, and feels like he could have diarrhea but is not. He does not have any history of kidney dysfunction, liver disease, prior kidney stones, he denies hematuria, denies fevers, denies other positive review of systems at this time. Related Data Previous Rx's Medication Instructions Recorded fluticasone propionate 50 1 spray intranasal DAILY PRN 01/19/22 mcg/actuation nasal allergy symptoms #16 grams spray,suspension (Flonase Allergy Relief) aspirin 81 mg tablet,delayed 81 mg PO DAILY Blood thinner #30 01/29/22 release tabs blood pressure monitor #1 ea 01/29/22 nitroglycerin 0.4 mg sublingual 0.4 mg sublingual Q5M PRN chest 01/29/22 tablet pain #20 tabs atorvastatin 40 mg tablet 40 mg PO HS High cholesterol #90 01/29/23 tabs carvedilol 3.125 mg tablet 3.125 mg PO BID High blood 01/29/23 pressure #18
[2023-05-13 08:25] LABS: Microscopic, Urine URINE MICROSCOPIC (MICROSCOPIC)
[2023-05-13 08:26] LABS: Appearance,Urine CLEAR (Clear); Blood, Urine Negative (Negative); Color,Urine YELLOW (Yellow); Glucose,Urine (UA) Negative (Negative); Ketones,Urine Negative (Negative); Leukocyte Esterase,Urine Negative (Negative); Nitrate,Urine Negative (Negative); Protein,Urine Negative (Negative); Specific Gravity, Urine 1.025 (1.005-1.030); Urobilinogen,Urine 0.2 EU/dl (0.2)
[2023-05-13 08:37] LABS: Bacteria,Urine Trace /lpf; Basophils % 0.7 % (0.1-2.0); Bilirubin,Urine Negative (Negative); Chloride 103 mmol/L (98-107); Eosinophils # 0.2 K/mm3 (0.0-0.4); Eosinophils % 2.6 % (0.1-12.0); Hematocrit 46.1 % (42.0-52.0); Hemoglobin 15.5 g/dL (14.1-18.0); Lymphocytes % 16.2 % (10-50); Mean Corpuscular HGB Conc 33.6 g/dL (31.8-35.4); Mean Corpuscular Hemoglobin 29.4 pg (27.0-31.2); Mean Corpuscular Volume 87.6 fl (80-94); Mean Platelet Volume 8.4 fl (7.4-10.4); Monocytes # 0.3 K/mm3 (0.1-1.0); Monocytes % 4.3 % (1.7-9.3); Neutrophils # 4.8 K/mm3 (1.8-7.8); Neutrophils % 76.3 % (37.0-80.0); Platelet Count 238 K/mm3 (142-424); Red Blood Count 5.26 M/mm3 (4.60-6.20); Red Cell Distribution Width 14.7 % (11.5-17.5); Squamous Epithelial Cell,Urine Occasional #/hpf (0-5); White Blood Count 6.2 K/mm3 (4.8-10.8)
[2023-05-13 08:38] LABS: Potassium 4.2 mmoL/L (3.5-5.1); Sodium 141 mmol/L (136-145)
[2023-05-13 08:40] LABS: Blood Urea Nitrogen 17 mg/dl (9-20); Creatinine Clearance Estimated 85 mL/min (50-200); Estimated Glomerular Filt Rate 67 ml/min (>60); GFR (African American) 81 ML/MIN (>60)
[2023-05-13 08:41] LABS: Alanine Aminotransferase 162 U/L (12-78); Albumin Level 4.2 g/dl (3.5-5.0); Albumin/Globulin Ratio 1.2 (1.1-1.8); Alkaline Phosphatase 146 U/L (38-126); Anion Gap 11.2 mEq/L (5-15); Aspartate Amino Transferase 130 U/L (17-59); Bilirubin,Total 0.8 mg/dl (0.2-1.3); Calcium 8.7 mg/dl (8.4-10.2); Carbon Dioxide 31 mmol/L (22.0-30.0); Globulin 3.6 g/dL (1.3-3.2); Glucose 134 mg/dl (74-100); Total Protein,Serum 7.8 g/dl (6.3-8.2)
--- NOTE | 2023-05-13 09:40 | ECG_ITS ---
APPROVED REPORT Exam: Resting ECG HR:54 bpm ECG Measurements Heart Rate 54 AXES AL 144 P 47 QRSd 108 QRS 21 QT 436 T 50 QTc 423 Conclusion SINUS BRADYCARDIA INFERIOR MYOCARDIAL INFARCTION , PROBABLY OLD [40+ ms Q WAVE AND/OR ST/T ABNORMALITY IN II/aVF] ABNORMAL ECG UNCONFIRMED REPORT Electronically signed by : Tray Matta MD 05/15/2023 09:05:08
[2023-05-13 10:15] LABS: Troponin I < 0.01 ng/ml (0.00-0.034)
--- NOTE | 2023-05-13 10:59 | PC.NURSE ---
DR MEAD AT BEDSIDE TO DISCUSS POC AND DISCHARGE PT
[2023-05-13 11:02] VITALS: BP 125/77; PULSE 75; RESP 17; TEMP 36.6; O2SAT 98
[2023-05-15 05:13] LABS: HBsAg Screen Negative (Negative); HCV Ab Non Reactive (Non Reactive); Hep A Ab, IGM Negative (Negative); Hep B Core Ab, IgM Negative (Negative)
== END 2023-05-13 11:05 | disposition home or self-care (01) ==
PROVIDERS: Emergency Provider Emergency Medicine; PCP Family Medicine
DX: M54.50 Low back pain, unspecified (principal); R74.01 Elevation of levels of liver transaminase levels; I50.30 Unspecified diastolic (congestive) heart failure; E78.5 Hyperlipidemia, unspecified; R00.1 Bradycardia, unspecified
CPT/HCPCS: 74177; 80053; 80074; 81001; 84484; 85025; 93005; 96374; 96375; 99285; J2405; Q9967

== ENCOUNTER 2023-06-28 13:38 | Outpatient (CLI) | payer BC, MEDICARE, SELFPAY ==
[2023-06-28 14:18] LABS: Basophils % 0.6 % (0.1-2.0); Eosinophils # 0.2 K/mm3 (0.0-0.4); Hematocrit 44.1 % (42.0-52.0); Lymphocytes # 1.9 K/mm3 (0.7-4.5); Lymphocytes % 29.6 % (10-50); Mean Corpuscular Hemoglobin 29.5 pg (27.0-31.2); Mean Corpuscular Volume 86.7 fl (80-94); Mean Platelet Volume 8.4 fl (7.4-10.4); Monocytes # 0.4 K/mm3 (0.1-1.0); Monocytes % 6.1 % (1.7-9.3); Neutrophils % 60.8 % (37.0-80.0); Platelet Count 258 K/mm3 (142-424); Red Blood Count 5.09 M/mm3 (4.60-6.20); Red Cell Distribution Width 14.3 % (11.5-17.5); White Blood Count 6.5 K/mm3 (4.8-10.8)
[2023-06-28 15:11] LABS: Alanine Aminotransferase 49 U/L (12-78); Albumin/Globulin Ratio 1.4 (1.1-1.8); Alkaline Phosphatase 93 U/L (38-126); Anion Gap 6.9 mEq/L (5-15); Aspartate Amino Transferase 49 U/L (17-59); Bilirubin,Total 0.9 mg/dl (0.2-1.3); Blood Urea Nitrogen 13 mg/dl (9-20); Calcium 9.2 mg/dl (8.4-10.2); Carbon Dioxide 33 mmol/L (22.0-30.0); Chloride 103 mmol/L (98-107); Chol/HDL Ratio 3.7 (1-3.5); Cholesterol 119 mg/dl (140-200); Estimated Glomerular Filt Rate 75 ml/min (>60); GFR (African American) 91 ML/MIN (>60); Globulin 2.9 g/dL (1.3-3.2); Glucose 92 mg/dl (74-100); HDL Cholesterol 32 mg/dl (40-60); Magnesium 2.2 mg/dl (1.6-2.3); Potassium 3.9 mmoL/L (3.5-5.1); Sodium 139 mmol/L (136-145); Total Protein,Serum 6.9 g/dl (6.3-8.2); Triglycerides 84 mg/dl (30-150); VLDL Cholesterol 17 mg/dL (0-40)
[2023-06-28 15:22] LABS: Direct LDL Cholesterol 63.73 mg/dL (100-129)
[2023-06-28 15:27] LABS: Free T4 (Free Thyroxine) 0.85 ng/dl (0.78-2.19)
[2023-06-28 15:41] LABS: Thyroid Stimulating Hormone 2.64 uIU/mL (0.465-4.68)
== END 2023-06-28 23:59 ==
LOC: LAB 13:41
PROVIDERS: Physician Assistant; PCP Family Medicine; Visit Provider Physician Assistant
DX: E04.1 Nontoxic single thyroid nodule (principal); E78.2 Mixed hyperlipidemia; I11.9 Hypertensive heart disease without heart failure; I25.10 Atherosclerotic heart disease of native coronary artery without angina pectoris; I25.5 Ischemic cardiomyopathy; K21.9 Gastro-esophageal reflux disease without esophagitis; R74.8 Abnormal levels of other serum enzymes
CPT/HCPCS: 36415; 80053; 80061; 83735; 84439; 84443; 85025

== ENCOUNTER 2023-11-19 15:33 | Outpatient (POV) | payer BC, SELFPAY | END 2023-11-19 23:59 | disposition home or self-care (01) | LOC: SC 15:33 | PROVIDERS: PCP Family Medicine; Visit Provider Dermatology | DX: Z00.00 Encounter for general adult medical examination without abnormal findings (principal) ==

== ENCOUNTER 2023-12-31 12:19 | Outpatient (CLI) | payer BC, MEDICARE, SELFPAY ==
[2023-12-31 13:38] LABS: Alanine Aminotransferase 21 U/L (12-78); Albumin Level 3.8 g/dl (3.5-5.0); Alkaline Phosphatase 63 U/L (38-126); Aspartate Amino Transferase 29 U/L (17-59); Bilirubin,Indirect 1.2 mg/dL (0.0-0.9); Bilirubin,Total 1.2 mg/dl (0.2-1.3); Bilirubin,Unconjugated 1.4 mg/dL (0.0-1.1); Chol/HDL Ratio 3.3 (1-3.5); Cholesterol 111 mg/dl (140-200); HDL Cholesterol 34 mg/dl (40-60); Total Protein,Serum 6.5 g/dl (6.3-8.2); Triglycerides 162 mg/dl (30-150); VLDL Cholesterol 32 mg/dL (0-40)
[2023-12-31 13:51] LABS: Direct LDL Cholesterol 50.74 mg/dL (100-129)
== END 2023-12-31 23:59 | disposition home or self-care (01) ==
LOC: LAB 12:26
PROVIDERS: PCP Family Medicine; Visit Provider Physician Assistant
DX: E78.5 Hyperlipidemia, unspecified (principal); R74.8 Abnormal levels of other serum enzymes
CPT/HCPCS: 36415; 80061; 80076

== ENCOUNTER 2024-01-16 07:42 | Outpatient (CLI) | payer BC, SELFPAY ==
--- NOTE | 2024-01-16 07:43 | CA_ITS ---
APPROVED REPORT EXAM: Comprehensive 2D, Doppler, and color-flow Echocardiogram Esthetician Makeup Artist: Graciela Herrera CRT Ht: 5 ft 9 in Wt: 201lbs BSA: 2.07 BP: 121/79 mmHg Indications: Chest Pain, CAD, Hyperlipidemia, Cardiomyopathy Pt lost 50lb in last year. 2D Dimensions Left Atrium 3.05 cm LVEF (Bey's) 59.60 % LVOT 1.83 cm (M/F) 1.5-2.5 LV Volume 110.80 mL LA Volume 26.80 mL LA Volume Index 12.90 mL/m2 (M/F) 16-34 EF AP4 55.40 % EF AP2 62.5 % EF BP 59.6 % GL Strain -15.4 % M-Mode Dimensions RVDd 3.13 cm (0.9-2.6) LVDd 5.06 cm (3.5-5.7) Ao Diam 4.38 cm (2.0-3.7) IVSd 1.45 cm (0.6-1.1) PWd 1.04 cm (0.6-1.1) EDV (Teich) 121.60 mL TAPSE 1.86 (<1.7) LV Diastology E Decel Time 247 (160-240 msec) E/A Ratio 1.00 MED E' 5.1 (>= 7 cm/sec) MED A' 6.60 cm/s E'/MED E' Ratio 14.14 (<= 14) LAT E' 9.0 (>= 10 cm/sec) LAT A' 12.00 cm/s E/LAT E' Ratio 8.01 (<= 14) Aortic Valve AoV Peak Lucio. 137.0 (50-130 cm/s) AO Peak GR. 7.70 mmHg Mitral Valve MV E Max Lucio. 72.0 (40-130 cm/s) MV A Velocity 72.0 (40-130 cm/s) E/A Ratio 1.00 MV Decel. Time 247 (160-240 ms) Tricuspid Valve TR P. Velocity 260.00 cm/s RAP Estimate 10.00 mmHg RVSP 37.10 mmHg Left Ventricle The left ventricle is normal size. The left ventricular systolic function is low normal. There is increased LV wall thickness. There is normal LV segmental wall motion. The left ventricular diastolic function is normal. LVEF is 50%. Right Ventricle The right ventricle is normal size. The right ventricular systolic function is normal. Atria The left atrium size is normal. The right atrium size is normal. There is no Doppler evidence of interatrial shunt. Aortic Valve The aortic valve is mildly thickened. There is no aortic valvular stenosis. Trace aortic regurgitation. Mitral Valve The mitral valve leaflets are mildly thickened. No evidence of mitral valve stenosis. Trace mitral regurgitation. Tricuspid Valve The tricuspid valve leaflets are thin and pliable. Mild tricuspid regurgitation. RVSP is 20-25 mmHg. Pulmonic Valve The pulmonary valve is normal in structure. Trace pulmonic regurgitation. Great Vessels The aortic root is normal in size. The ascending aorta is normal in size. IVC is normal in size and collapses >50% with inspiration. Pericardium There is no pericardial effusion. Other Information Study Quality: Technically Difficult Conclusion Technically difficult study due to poor acoustic windows. Normal biventricular systolic function. Mild TR. RVSP 20-25 mmHg. Electronically signed by : Renée Rivera MD 01/21/2024 09:28:47
== END 2024-01-16 23:59 | disposition home or self-care (01) ==
LOC: RT 07:43
PROVIDERS: PCP Family Medicine; Visit Provider Nurse Practitioner Family
DX: I50.32 Chronic diastolic (congestive) heart failure (principal); I51.89 Other ill-defined heart diseases
CPT/HCPCS: 93306

== ENCOUNTER 2024-06-26 13:51 | Outpatient (CLI) | payer BC, SELFPAY ==
[2024-06-26 14:18] LABS: Basophils # 0.1 K/mm3 (0-0.2); Basophils % 0.9 % (0.1-2.0); Eosinophils # 0.2 K/mm3 (0.0-0.4); Eosinophils % 2.6 % (0.1-12.0); Hematocrit 47.6 % (42.0-52.0); Lymphocytes # 1.6 K/mm3 (0.7-4.5); Lymphocytes % 23.3 % (10-50); Mean Corpuscular HGB Conc 33.6 g/dL (31.8-35.4); Mean Corpuscular Hemoglobin 28.5 pg (27.0-31.2); Mean Corpuscular Volume 84.7 fl (80-94); Mean Platelet Volume 10.8 fl (7.4-10.4); Monocytes # 0.5 K/mm3 (0.1-1.0); Monocytes % 7.8 % (1.7-9.3); Neutrophils # 4.5 K/mm3 (1.8-7.8); Neutrophils % 64.4 % (37.0-80.0); Platelet Count 253 K/mm3 (142-424); Red Blood Count 5.62 M/mm3 (4.60-6.20); Red Cell Distribution Width 13.1 % (11.5-17.5)
[2024-06-26 14:37] LABS: Albumin Level 4.5 g/dl (3.5-5.0); Chloride 99 mmol/L (98-107)
[2024-06-26 14:38] LABS: Sodium 136 mmol/L (136-145)
[2024-06-26 14:40] LABS: Alanine Aminotransferase 27 U/L (12-78); Aspartate Amino Transferase 39 U/L (17-59); Bilirubin,Unconjugated 1.2 mg/dL (0.0-1.1); Blood Urea Nitrogen 20 mg/dl (9-20); Carbon Dioxide 30 mmol/L (22.0-30.0); Estimated Glomerular Filt Rate 84 ml/min (>60); GFR (African American) 102 ML/MIN (>60); Total Protein,Serum 7.1 g/dl (6.3-8.2)
[2024-06-26 14:41] LABS: Alkaline Phosphatase 51 U/L (38-126); Bilirubin,Indirect 1.2 mg/dL (0.0-0.9); Bilirubin,Total 1.2 mg/dl (0.2-1.3); Calcium 9.3 mg/dl (8.4-10.2); Chol/HDL Ratio 2.8 (1-3.5); Cholesterol 106 mg/dl (140-200); Glucose 90 mg/dl (74-100); HDL Cholesterol 38 mg/dl (40-60); Triglycerides 82 mg/dl (30-150); VLDL Cholesterol 16 mg/dL (0-40)
[2024-06-26 14:52] LABS: Direct LDL Cholesterol 45.23 mg/dL (100-129)
[2024-06-26 14:56] LABS: Free T4 (Free Thyroxine) 1.03 ng/dl (0.78-2.19)
[2024-06-26 15:11] LABS: Thyroid Stimulating Hormone 5.73 uIU/mL (0.465-4.68)
== END 2024-06-26 23:59 | disposition home or self-care (01) ==
LOC: LAB 13:52
PROVIDERS: PCP Family Medicine; Visit Provider Physician Assistant
DX: I10 Essential (primary) hypertension (principal); I25.10 Atherosclerotic heart disease of native coronary artery without angina pectoris; Z95.5 Presence of coronary angioplasty implant and graft; E78.2 Mixed hyperlipidemia; I25.5 Ischemic cardiomyopathy; I51.89 Other ill-defined heart diseases; K21.9 Gastro-esophageal reflux disease without esophagitis; I50.32 Chronic diastolic (congestive) heart failure; R74.8 Abnormal levels of other serum enzymes
CPT/HCPCS: 36415; 80048; 80061; 80076; 83735; 84439; 84443; 85025